=== PATIENT | female | born 1960 | race Caucasian/White ===

== ENCOUNTER 2016-10-30 06:44 | Inpatient (IN) | payer BC ==
--- NOTE | 2016-10-24 13:52 | HP ---
HISTORY AND PHYSICAL: DATE OF SURGERY: 10/30/16 DATE OF OFFICE VISIT: 10/24/16 SURGEON: Elizabeth Coffman MD. PROCEDURE: Left total knee arthroplasty. CHIEF COMPLAINT: Left arm pain. HISTORY OF PRESENT ILLNESS: Ms. Pop is a 56-year-old female with complaints of left knee pain sec ondary to advanced osteoarthritis. She has failed conservative management and has elected to procee d with a left total knee arthroplasty, which is scheduled for 10/30/[address] Coffman. PAST MEDICAL HISTORY: 1. Hypothyroidism. 2. Sleep apnea. 3. Lichen sclerosus. PAST SURGICAL HISTORY: 1. x3. 2. Tonsillectomy. 3. Ganglion cyst excision from the right wrist x2. 4. Bilateral knee arthroscopies. CURRENT MEDICATIONS: 1. Percocet 5/325. 2. Ibuprofen 800 mg. 3. Synthroid 137 mcg. 4. Relpax. 5. EpiPen. 6. Excedrin. 7. Glucosamine. 8. Clobetasol. 9. Estrace. 10. Vitamin B12. 11. Vitamin D. 12. Multivitamin. ALLERGIES: To [facility] drugs and [facility]. FAMILY HISTORY: Aortic aneurysm, heart disease, giant-cell arteritis, and hypertension. SOCIAL HISTORY: She is a 56-year-old female. She is a physical therapist. She does not smoke or u se drugs. She uses occasional alcohol. REVIEW OF SYSTEMS: A complete 14-point review of systems was reviewed with the patient. It is posi tive for hypothyroidism. Negative for anesthesia problems, history of a DVT, bleeding disorder, hep atitis C, or HIV. PHYSICAL EXAMINATION GENERAL: She is well developed, well nourished, in no acute distress. VITAL SIGNS: She stands 5 feet 7 inches tall, weighs 195 pounds, her blood pressure is 121/84, her heart rate 73. HEENT: Normocephalic, atraumatic. NECK: Supple. No palpable lymph nodes. Trachea is midline. CARDIO: Regular rate and rhythm. Strong S1, S2. No murmurs, gallops, or rubs. PULMONARY: The lungs are clear to auscultation bilaterally. No wheezes, rhonchi, or rales. ABDOMEN: Soft, nontender, nondistended. MUSCULOSKELETAL: Left lower extremity, the skin is intact. There is a moderate joint effusion. Te nderness over the medial and lateral joint line. Full range of motion. Her lower extremity muscle group strengths are intact at 5/5. She has 2+ dorsalis pedis pulses, intact sensation. She walks with a slightly antalgic-type gait favoring her left leg. NEUROLOGIC: She is alert and oriented x3. Cranial nerves II through XII are intact. ASSESSMENT AND PLAN: Ms. Pop is a 56-year-old female with complaints of left knee pain secondary to advanced osteoarthritis. She has failed conservative management and has elected to proceed with a left total knee arthroplasty, which is scheduled for 10/30/[address] Coffman discusse d the risks and benefits of the surgery at today's visit and all of her questions were answered. Co umadin, Colace, and Percocet were sent to her pharmacy for postoperative pain control and DVT prophy laxis. She will see Dr. Coffman back 2 weeks after the surgery. KRYSTLE SHANNON [id number]/[facility] #: [id number]
--- NOTE | 2016-10-28 21:23 | HP ---
HISTORY AND PHYSICAL: ADDENDUM: The chief complaint is left knee pain instead of left arm pain and she is scheduled for a left total knee arthroplasty on 10/30/[address] Coffman. KRYSTLE SHANNON [id number]/[facility] #: [id number]
[~2016-10-30 06:44] MED LIST: Buffered Lidocaine 1% SYR 3ML* 3 ML/SYR SYRINGE INTRADERM ONE; Dexamethasone IV* 4 MG/ML 1 ML (4 MG) IV SLOW PU ONE; Dexamethasone IV* 4 MG/ML 1 ML (4 MG) ONE; Famotidine IV* 10 MG/ML 2 ML (20 mg) IV ONE; Famotidine IV* 10 MG/ML 2 ML (20 mg) ONE; ceFAZolin 2 GM PREMIX(*) 2 GM/50 ML BAG IVPB ONE
[2016-10-30] MEDS ORDERED: diPHENhydraMINE IV* 50 MG/ML 1 ml VIAL (BENADRYL) IV PRN ×2 (09:00→10:46)
[2016-10-30] MEDS ORDERED: fentaNYL* 50 MCG/ML 2 ML VIAL (100 MCG VIAL) IV PRN (09:00)
[2016-10-30] MEDS ORDERED: oxyCODONE/Acetamin 5/325 MG* TAB PO PRN ×2 (09:00→10:46)
[2016-10-30] MEDS ORDERED: Naloxone* 0.4 MG/ML 1 ML VIAL IV PRN (09:00)
[2016-10-30] MEDS ORDERED: Nalbuphine* 20 MG/ML 1 ML VIAL IV PRN (09:00)
[2016-10-30] MEDS ORDERED: Ropivacaine* 300 MG in NS 0.9% 250 ML* 240 ML EPIDURAL SCH (09:00)
[2016-10-30] MEDS ORDERED: Scopolamine 1.5 mg* PATCH TRANSDERM SCH (09:00)
[2016-10-30] MEDS ORDERED: DiMENhydriNATE IV* 50 MG/ML VIAL IV PUSH PRN (09:00)
[2016-10-30] MEDS ORDERED: Ondansetron INJ* 2 MG/ML VIAL IV PRN ×2 (09:00)
[2016-10-30] MEDS ORDERED: Acetaminophen TAB* 325 MG PO PRN (10:46)
[2016-10-30] MEDS ORDERED: Polyethylene Glycol 3350* 17 GM PACKET PO PRN (10:46)
[2016-10-30] MEDS ORDERED: Bisacodyl SUPP* 10 MG SUPP PR PRN (10:46)
[2016-10-30] MEDS ORDERED: Ondansetron TAB* 4 MG PO PRN (10:46)
[2016-10-30] MEDS ORDERED: Magnesium Hydroxide LIQ* 30 ML UDC PO PRN (10:46)
--- NOTE | 2016-10-30 11:29 | RAD ---
INDICATION: Status post total left knee replacement surgery. COMPARISON: Comparison is made with a prior x-ray study of the left knee from October 24, 2016. TECHNIQUE: 2 views of the left knee were obtained. FINDINGS: The patient is status post total left knee replacement surgery. The bones and prostheses are in normal alignment. There is a surgical drain present anterior to the distal femur. IMPRESSION: STATUS POST TOTAL LEFT KNEE REPLACEMENT SURGERY.
[2016-10-30] MEDS ORDERED: Nalbuphine* 20 MG/ML 1 ML VIAL ONE (12:41)
[2016-10-30] MEDS: Nalbuphine* 20 MG/ML 1 ML VIAL IV PRN ×2 (12:43→18:47)
[2016-10-30] MEDS: ceFAZolin 1 GM in Dextrose (*) 1 GM/50 ML BAG IVPB SCH ×2 (15:04→23:11)
[2016-10-30] MEDS ORDERED: SUMAtriptan TAB* 25 MG PO ONE (16:50)
[2016-10-30] MEDS: Warfarin TAB(*) 6 MG PO ONE ×2 (17:01→17:14)
[2016-10-30] MEDS ORDERED: SUMAtriptan TAB* 50 MG PO PRN (18:50)
[2016-10-30] MEDS: Docusate CAP* 100 MG PO SCH (21:00)
[2016-10-30] MEDS: oxyCODONE/Acetamin 5/325 MG* TAB PO PRN (23:16)
[2016-10-31] MEDS: oxyCODONE/Acetamin 5/325 MG* TAB PO PRN ×7 (02:29→21:18)
[2016-10-31] MEDS: Levothyroxine TAB* 137 MCG TAB PO SCH (05:26)
[2016-10-31 06:31] LABS: Hematocrit 30 % (35-47); Hemoglobin 10.1 g/dl (12.0-16.0)
[2016-10-31] MEDS: ceFAZolin 1 GM in Dextrose (*) 1 GM/50 ML BAG IVPB SCH (06:49)
[2016-10-31 06:56] LABS: BUN/Creatinine Ratio 23.8 (8-20); Calcium 8.3 mg/dL (8.6-10.3); EGFR African American 95.4 (>60); EGFR Non-African American 74.2 (>60); Potassium 3.5 mmol/L (3.5-5.0)
[2016-10-31] MEDS: Morphine INJ* 2 MG/ML 1 ML SYRINGE IV PRN ×5 (07:01→19:58)
[2016-10-31] MEDS: Docusate CAP* 100 MG PO SCH ×2 (08:20→19:58)
[2016-10-31] MEDS: Enoxaparin(*) 30 MG/0.3 ML SYR SUBCUT SCH (08:21)
--- NOTE | 2016-10-31 08:32 | PN ---
Progress Note - Progress Note SOAP: Subjective: 56 y/o female s/p L TKA 10/30/[address] Coffman. Overall patient feeling well, no complaints. 1 L fluid given today to increase UO, low BP. VSS, afebrile. Objective: General- Well appearing, NAD. Resting in bed comfortably with family nearby. MSK- Surgical dressing intact, no drainage noted, sensation intact L LE, mild swelling noted, PT pulses 2+ b/l, + DF/ PF Vital Signs Temp 98.5 F 10/31/16 07:43 Pulse 87 10/31/16 07:43 Resp 16 10/31/16 08:20 BP 108/66 10/31/16 07:43 Pulse Ox 94 10/31/16 07:43 Intake & Output 10/30/16 10/31/16 10/31/16 18:59 06:59 18:59 Intake Total 1400 1599 Output Total 1350 625 Balance 50 974 Weight 198 lb Intake: IV Fluids 1400 989 LR 989 lr 1400 Oral 610 Output: [place] 1150 625 Estimated Blood Loss 200 Other: # Bowel Movements 0 Laboratory Results - last 24 hr 10/31/16 10/31/16 10/31/16 06:06 06:06 06:07 Hgb 10.1 L Hct 30 L INR (Anticoag Therapy) 0.98 Sodium 136 Potassium 3.5 Chloride 104 Carbon Dioxide 28 Anion Gap 4 BUN 19 Creatinine 0.80 Est GFR ( Amer) 95.4 Est GFR (Non-Af Amer) 74.2 BUN/Creatinine Ratio 23.8 H Glucose 106 H Calcium 8.3 L Assessment: 56 y/o female s/p R TKA 10/30/[address] Coffman Plan: - Lovenox while inpatient, ASA 325 BID at D/C - PT/ OT - D/C mays - COntinue pain regimen Active Medications Generic Name Dose Route Start Last Admin Trade Name Freq PRN Reason Stop Dose Admin Acetaminophen 650 mg 10/30/16 10:46 Tylenol Tab* PO Q4H PRN PAIN OR TEMPERATURE Bisacodyl 10 mg 10/30/16 10:46 Dulcolax Supp* [place] DAILY PRN constipation Diphenhydramine HCl 12.5 mg 10/30/16 10:46 Benadryl Iv* IV Q6H PRN PRURITIS Docusate Sodium 100 mg 10/30/16 21:00 10/31/16 08:20 Colace Cap* PO 100 mg BID MARÍA Administration Enoxaparin Sodium 30 mg 10/31/16 09:00 10/31/16 08:21 Lovenox(*) SUBCUT 30 mg Q24H MARÍA Administration Lactated Ringer's 1,000 mls @ 175 mls/hr 10/31/16 08:00 10/31/16 08:18 Lactated Ringers 1000 Ml Bag* IV 175 mls/hr PER RATE MARÍA Administration Lactulose 30 ml 10/30/16 10:46 Lactulose* PO Q6H PRN constipation Levothyroxine Sodium 137 mcg 10/31/16 06:00 10/31/16 05:26 Synthroid Tab* PO 137 mcg DAILY@0600 [facility] Administration Magnesium Hydroxide 30 ml 10/30/16 10:46 Milk Of Magnesia Liq* PO Q6H PRN constipation Morphine Sulfate 2 mg 10/30/16 10:46 10/31/16 07:01 Morphine Inj (Syringe)* IV 2 mg Q2H PRN Administration PAIN Ondansetron HCl 4 mg 10/30/16 10:46 Zofran Tab* PO Q6H PRN NAUSEA Oxycodone HCl 10 mg 10/30/16 10:46 Roxycodone Tab* PO Q4H PRN SEVERE PAIN Oxycodone/Acetaminophen 1 tab 10/30/16 10:46 Percocet 5/325 Tab* PO Q3H PRN PAIN - MODERATE Oxycodone/Acetaminophen 2 tab 10/30/16 10:46 10/31/16 08:20 Percocet 5/325 Tab* PO 2 tab Q3H PRN Administration PAIN - MODERATE Pharmacy Profile Note 1 note 11/02/16 09:04 Scopolomine Patch Remove* PATCH OFF 11/02/16 09:05 .AFTER 72 HOURS ONE Polyethylene Glycol/Electrolytes 17 gm 10/30/16 10:46 Miralax* PO DAILY PRN Constipation
--- NOTE | 2016-10-31 09:09 | OP ---
DATE OF OPERATION: 10/30/16 - ROOM #343 DATE OF : 60 SURGEON: Elizabeth Coffman MD. STORE SALES MANAGER: KRYSTLE Cosby. Ms. Magdaleno did help throughout all portions of the procedure and was necessary in order to perform this case. ANESTHESIOLOGIST: Dr. Bryce Liu. ANESTHESIA: Spinal. PRE-OP DIAGNOSIS: Severe end-stage degenerative osteoarthritis of the left knee joint. POST-OP DIAGNOSIS: Severe end-stage degenerative osteoarthritis of the left knee joint. OPERATIVE PROCEDURE: Left total knee arthroplasty. TOURNIQUET TIME: 50 minutes. COMPLICATIONS: None. ESTIMATED BLOOD LOSS: 200 cc. DRAIN: One medium Hemovac drain. SPECIMEN: Bone and cartilage from the left knee joint sent to pathology. HARDWARE USED: [employer] cemented total knee hardware with 2 packages of Simplex bone cement. For the femur, a size 4, left posterior stabilized Legion Oxinium femoral component. For the tibia, a size 3 left tibial base plate. For the patella, a 32-mm 7.5 thickness, 3-peg all-poly patella, and for the insert a 9 mm posterior stabilized articular insert, size 3-4. BRIEF HISTORY/INDICATION: Ms. Pop is a 56-year-old female with years of increasingly severe left knee pain. She failed conservative treatment with antiinflammatories, pain medications, intraarticular injections and knee arthroscopy. She elected to undergo left total knee arthroplasty due to continued pain and decreased quality of life. Radiographs confirmed bone-on- bone arthritis in the medial compartment. Informed consent was obtained from the patient. She understood the risks of the procedure included, but were not limited to bleeding, infection, damage to nearby structures, continued pain, need for further surgery, intraoperative fracture, nerve palsy, hardware failure or loosening, knee stiffness, loss of motion, stroke, heart attack, blood clot, and . She wished to proceed. INTRAOPERATIVE FINDINGS: Intraoperatively, the patient was noted to have severe end-stage arthritis of the medial and patellar femoral compartments with complete loss of cartilage and subchondral sclerosis. DESCRIPTION OF PROCEDURE: Ms. Pop was identified in the preanesthesia unit. Her left lower extremity was marked as the correct operative site. Informed consent was signed and placed in the chart. The patient was taken to the operating room and placed under spinal anesthesia without difficulty. A Zavala catheter was placed. Thigh-high tourniquet was placed on the left thigh. Left lower extremity was prepped and draped in the usual sterile fashion. Preop time-out was made to correctly identify the patient's side and site. Appropriate perioperative antibiotics were given within 1 hour of the procedure. Tourniquet was inflated and total tourniquet time for this procedure was 50 minutes. A 12 cm midline incision was made with a 10-blade and carried down to the extensor mechanism. A new 10 blade was used to make a standard medial parapatellar arthrotomy. The patella was subluxed laterally. It was immediately noted that the entire patella, medial and lateral facet as well as medial compartment had lost cartilage and subchondral sclerosis with osteophyte formation. Electrocautery was used to subperiosteally elevate soft tissue off the superomedial tibia to the mid sagittal plane. The osteophytes were carefully removed. The knee was flexed up. Anterior horn of the lateral meniscus and ACL was sharply released. A drill was used to enter the distal femur. Intramedullary distal femoral cutting guide was pinned on the distal femur. Oscillating saw was used to make the distal femoral cut. An external rotation guide was pinned on the distal femur. The distal femur was sized to a size 4. Size 4 multi-cutting jig was pinned on the distal femur. Oscillating saw to used to make the appropriate 4 chamfer cuts. All bony fragments were carefully removed. The PCL was completely released. The tibia was subluxed anteriorly. Extramedullary tibial cutting guide was pinned on the proximal tibia. The oscillating saw was used to make a proximal tibial cut perpendicular to the mechanical axis of the tibia. The tibial bone was carefully removed. The knee was brought out to full extension. The spacer block had excellent medial and lateral ligamentous balancing. The knee was in full extension. Flexion and extension gaps were well balanced. The knee was flexed up. Lamina hair spinning machine operator was placed both medially and laterally. Any remaining meniscus was carefully removed using electrocautery. Any posterior osteophytes were removed using a curved osteotome and curette. A size 4 left femoral trail was impacted onto the distal femur. The box for the posterior stabilized implant was prepared using a reamer and box cut osteotome. A size 3 tibial trial with a 9 mm insert trial was placed and the knee was taken through a range of motion. There was good medial and lateral ligamentous stability. The knee had full extension to 130 degrees of flexion with good patellofemoral tracking. The patella was everted. The patellar bone was intensely sclerotic. Oscillating saw was used to remove 7 mm of patellar bone and cartilage. The patella was sized to a size 32. Three peg holes were drilled through the size 32 guide. A 32 patellar trial with 7.5 thickness was chosen and placed on the patella. The knee was taken through a range of motion and noted to have good patellofemoral tracking. All trials were carefully removed at this point. The tibia was subluxed anteriorly and sized to a size 3. Proximal tibia was prepared using a size 3 keel punch. All bony cut surfaces were copiously irrigated and dried. Final implants were cemented into place starting with the tibia followed by the femur and last the patella. A 9 mm insert trial was placed while the knee was brought out to full extension. Tourniquet was turned down at 50 minutes. The cement was allowed to fully cure and the knee was copiously irrigated with sterile saline. Once the cement had fully cured, the insert trial was removed. The entire joint capsule and around the edges of the hardware was checked for any excess cement, which was carefully removed. Electrocautery was used to obtain meticulous hemostasis. Final insert chosen was a 9 mm size 3-4 posterior stabilized articular insert. This was locked into position on the tibial tray without difficulty. Stability of the insert was checked and rechecked and noted to be stable. The knee was once again copiously irrigated with sterile saline. The extensor mechanism was closed over a medium Hemovac drain using interrupted #1 Vicryl. The rest of the incision was closed in a layered fashion using 0 and 2-0 Vicryl. Skin was closed using running 3-0 nylon suture. Sterile Xeroform, 4x4s , and Webril were used to cover the incision. Bret wrap and cold packs were placed over this. The patient's anesthesia was reversed without difficulty. She was taken to the PACU in stable condition. Intended weightbearing will be weightbearing as tolerated. Intended DVT prophylaxis will be twice daily aspirin with a Lovenox bridge. [id number]/[facility] #: [id number] LEDY
[2016-10-31] MEDS ORDERED: SUMAtriptan TAB* 50 MG PO PRN (10:24)
[2016-10-31] MEDS ORDERED: PTO: ELETRIPTAN 40 MG (NF) PO PRN (21:00)
[2016-10-31] MEDS: ELETRIPTAN HYDROBROMIDE 40 MG PO SCH (21:40)
[2016-11-01] MEDS: oxyCODONE TAB* 5 MG TAB PO PRN ×4 (00:20→15:35)
[2016-11-01] MEDS: Morphine INJ* 2 MG/ML 1 ML SYRINGE IV PRN (02:00)
[2016-11-01] MEDS: oxyCODONE/Acetamin 5/325 MG* TAB PO PRN ×5 (03:23→23:04)
[2016-11-01 05:49] LABS: Hematocrit 30 % (35-47); Hemoglobin 10.4 g/dl (12.0-16.0)
[2016-11-01] MEDS: Levothyroxine TAB* 137 MCG TAB PO SCH (06:21)
--- NOTE | 2016-11-01 07:38 | PN ---
Progress Note - Progress Note SOAP: Subjective: pt resting comfortably in bed with moderate left knee pain. Objective: Vital Signs Temp Pulse Resp BP Pulse Ox 98.4 F 100 16 147/79 94 11/01/16 03:29 11/01/16 06:56 11/01/16 06:21 11/01/16 03:29 11/01/16 03:29 Laboratory Last Values Hgb 10.4 g/dl (12.0-16.0) L 11/01/16 05:32 Hct 30 % (35-47) L 11/01/16 05:32 INR (Anticoag Therapy) 1.07 (0.89-1.11) 11/01/16 05:32 Sodium 136 mmol/L (133-145) 10/31/16 06:06 Potassium 3.5 mmol/L (3.5-5.0) 10/31/16 06:06 Chloride 104 mmol/L (101-111) 10/31/16 06:06 Carbon Dioxide 28 mmol/L (22-32) 10/31/16 06:06 Anion Gap 4 mmol/L (2-11) 10/31/16 06:06 BUN 19 mg/dL (6-24) 10/31/16 06:06 Creatinine 0.80 mg/dL (0.51-0.95) 10/31/16 06:06 Est GFR ( Amer) 95.4 (>60) 10/31/16 06:06 Est GFR (Non-Af Amer) 74.2 (>60) 10/31/16 06:06 BUN/Creatinine Ratio 23.8 (8-20) H 10/31/16 06:06 Glucose 106 mg/dL (70-100) H 10/31/16 06:06 Calcium 8.3 mg/dL (8.6-10.3) L 10/31/16 06:06 incision: c/d; dressing changed PE: NVI Assessment: s/p left TKA; POD #2 Plan: 1) Continue PT/OT 2) Continue Lovenox/SCD's for DVT prophylaxis 3) OOB with PT this am, if she does well, D/C home this pm 4) ASA 325mg BID once home for DVT prophylaxis; F/U with Dr. Coffman in 2 weeks.
[2016-11-01] MEDS: Docusate CAP* 100 MG PO SCH ×2 (08:30→21:24)
[2016-11-01] MEDS: ELETRIPTAN HYDROBROMIDE 40 MG PO SCH (08:30)
[2016-11-01] MEDS: Enoxaparin(*) 30 MG/0.3 ML SYR SUBCUT SCH (08:31)
--- NOTE | 2016-11-01 10:19 | RAD ---
INDICATION: Postoperative cough. COMPARISON: Comparison is made with prior study from October 24, 2016. TECHNIQUE: A portable view of the chest was obtained. FINDINGS: Cardiac and mediastinal contours appear to be within normal limits. The lungs are underinflated and clear. No pleural effusion is seen. IMPRESSION: NO EVIDENCE FOR ACUTE FINDING.
[2016-11-01] MEDS ORDERED: NS 0.9% 500 ML BAG* 500 ML IV SCH (11:00)
[2016-11-01 11:55] LABS: Hematocrit 30 % (35-47); Hemoglobin 10.3 g/dl (12.0-16.0); Mean Corpuscular HGB Conc 34 g/dl (31-36); Mean Corpuscular Hemoglobin 31 pg (27-31); Mean Corpuscular Volume 90 fL (80-97); Mean Platelet Volume 7 um3 (7.4-10.4); Red Blood Count 3.38 10^6/ul (4.0-5.4); Red Cell Distribution Width 14 % (10.5-15); White Blood Count 9.9 10^3/ul (3.5-10.8)
[2016-11-01 12:13] LABS: Urine Bilirubin Negative (Negative); Urine Glucose Negative (Negative); Urine Nitrite Negative (Negative)
[2016-11-01 12:39] LABS: BUN/Creatinine Ratio 9.6 (8-20); Calcium 8.4 mg/dL (8.6-10.3); EGFR African American 106.1 (>60); EGFR Non-African American 82.5 (>60); Potassium 3.5 mmol/L (3.5-5.0)
[2016-11-01 12:50] LABS: TSH (Thyroid Stimulating Horm) 2.16 mcIU/mL (0.34-5.60)
[2016-11-01 12:57] LABS: Free T4 1.34 ng/dL (0.61-1.12)
[2016-11-01] MEDS ORDERED: Iohexol 350* (CONTRAST) 500 ML MDV IV ONE (13:33)
--- NOTE | 2016-11-01 14:28 | RAD ---
INDICATION: Postop drop in oxygen saturation, new tachycardia. COMPARISON: Correlation is made with a prior chest x-ray study from February 01, 2017. TECHNIQUE: A CT angiogram of the chest was performed with intravenous following intravenous injection of 76 ml of Omnipaque 350 nonionic contrast. Contiguous axial sections were obtained from the lung apices through the lung bases. Images were reconstructed in the coronal and sagittal planes. FINDINGS: There is relatively homogeneous opacification of the pulmonary arteries. No intraluminal filling defect or pulmonary embolism is seen. The heart is within normal limits in size. No pericardial effusion is present. The thoracic aorta is normal in caliber and demonstrates homogeneous contrast opacification. No significant enlarged mediastinal or hilar lymph nodes are seen. There is thickening of the wall of the distal esophagus. There is a small left pleural effusion and mild dependent bilateral lower lobe infiltrates most consistent with atelectasis. No significant focal osseous abnormality is seen. IMPRESSION: 1. NO EVIDENCE FOR PULMONARY EMBOLISM. 2. SMALL LEFT PLEURAL EFFUSION AND SMALL DEPENDENT BILATERAL LOWER LOBE INFILTRATES SUGGESTIVE OF ATELECTASIS LESS LIKELY PNEUMONIA. 3. MILD NONSPECIFIC THICKENING OF THE WALL OF THE DISTAL ESOPHAGUS SUGGESTING THE POSSIBILITY OF ESOPHAGITIS. RECOMMEND CLINICAL CORRELATION.
[2016-11-01] MEDS ORDERED: Potassium Chlor TAB* 20 MEQ TAB.ER PO ONE (14:35)
--- NOTE | 2016-11-01 15:04 | PN ---
Hospitalist Progress Note Reviewed labs and scan results. Patient's HR improved to low 90s following 500 cc bolus. Discussed results with patient. She still denies CP, SOB, n/v or acute complaint. CTA negative for PE. CXR and CTA with concern for atelectasis and question of small pleural effusion. Patient encouraged to be aggressive with pulmonary toileting, which she is in agreement with. Continue pain management and encouraging PO fluids. Continue to monitor overnight and likely d /c tomorrow.
--- NOTE | 2016-11-01 16:19 | CONS ---
MEDICINE CONSULTATION: DATE OF CONSULT: 11/01/16 PROVIDER: Ema Evans NP PRIMARY CARE PHYSICIAN: Brennan Rob MD. REQUESTING PHYSICIAN: Elizabeth Coffman MD CONSULTING PHYSICIAN: Jared Culver MD (as dictated by Ema Evans NP). REASON FOR CONSULTATION: Postoperative tachycardia. HISTORY OF PRESENT ILLNESS: Ms. Pop is a 56-year-old female with a past medical history significant for hypothyroidism and migraines, who presented to the hospital on 10/30/16 for an elective left total knee replacement. The patient has failed conservative outpatient management, has elected to proceed with the left total knee arthroplasty, which she did complete and tolerated relatively well. Postoperatively, the patient was noted to have some hypotension ; however, her H and H has remained stable. Prior to admission, the patient states that she was feeling well at home and denies any recent illnesses, fever, chills, chest pain, shortness of breath, abdominal pain, nausea, or vomiting. The patient denies any palpitations, dizziness, or syncopal events. She states she has been in relatively good health. The patient has had no major concerns during her stay again having stable H and H and electrolytes appear to be within normal limits. Notably, the patient's heart rate has been well controlled in the 60s and 80s until this morning when they were in the 100s. The patient has been gradually trending up from yesterday afternoon into the 90s and now in the 100s to 110s. The patient denies any current chest pain, palpitations, or shortness of breath. Also of note, when trending her O2 saturation, the patient was previously trending in the 98% to 100%. It is now 93% to 94%. PAST MEDICAL HISTORY: Significant for: 1. Hypothyroidism. 2. Osteoarthritis. 3. History of migraines. 4. Lichen sclerosus. PAST SURGICAL HISTORY: Includes: 1. x3. 2. Tonsillectomy. 3. Ganglion cyst excision in the right wrist x2. 4. Bilateral knee arthroscopies. HOME MEDICATIONS: 1. Oxycodone 5 mg q.4 hours p.r.n. 2. Vitamin B12 one tablet q.a.m. 3. Multivitamin 1 capsule q.p.m. 4. Probiotic 1 capsule q.a.m. 5. Clobetasol 0.05% ointment 1 application topical b.i.d. p.r.n. 6. Cholecalciferol 2000 units q.a.m. 7. Excedrin extra strength 1 tab p.r.n. 8. [place]-3 fatty acids 1000 mg daily. 9. Levothyroxine 137 mcg q.a.m. 10. Ibuprofen 600 mg q.6 hours p.r.n. 11. Glucosamine chondroitin 1 capsule q.a.m. 12. Estradiol vaginal cream 1 application 2 to 3 times a week. 13. Epinephrine 0.3 mg injection cartridge as needed for allergic reaction. 14. Relpax 40 mg p.r.n. migraines. 15. Aspirin 325 mg b.i.d. ALLERGIES: Include GLUTEN, SULFA DRUGS, and BEE VENOM. FAMILY HISTORY: The patient reports hypertension, hypercholesterolemia, arthritis, and diabetes in her father and hypertension, hypercholesterolemia, polymyalgia, temporal arteritis, hypothyroidism, osteoporosis, and B12 deficiency in her mother. She has also a brother with history of goiter, hypertension, and hypercholesterolemia. SOCIAL HISTORY: She reports occasional alcohol use. She denies any history of tobacco or illicit drug use. 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 She is , lives with her . Her , Mr. Juan David Pop, is her surrogate decision maker and healthcare proxy in the event of emergency. REVIEW OF SYSTEMS: A 14-point review of systems was completed. All pertinent positives and negatives are included in the HPI. All those not mentioned are negative. PHYSICAL EXAM: General: Ms. Pop is a 56-year-old female who is lying in the hospital bed in no acute distress. Most recent vital signs: Temperature 99.4, heart rate 104, respiratory rate 18, blood pressure 143/81, and O2 saturation is 94% on room air. HEENT: Head is atraumatic, normocephalic. Face is symmetrical. Pupils are equal, round, and reactive to light. Sclerae are anicteric. External ears and nose are normal. Oral mucosa appears moist. Neck : Supple. No lymphadenopathy appreciated. Cardiac: S1 and S2 heart sounds. Regular rate and rhythm. Apical pulse is 104. There is mild left lower extremity edema. Distal pulses are 2+ bilaterally. Respiratory: Lungs are clear to auscultation. No accessory muscle use is noted. No adventitious lung sounds. Abdomen: Soft, nontender, and nondistended. Bowel sounds present times all 4 quadrants. No CVA tenderness. Extremities: The patient has clean , dry, and intact dressing to the left knee and has good range of motion to upper extremities and right lower extremity, left lower extremity is mildly restricted secondary to dressing and recent surgery. There is mild edema in the postoperative left lower extremity, but no edema noted in the right lower extremity. Skin: Limited assessment but appears grossly intact. Neuro: Cranial nerves II through XII are grossly intact. The patient moves all extremities. No focal deficits noted. She is alert and oriented x3. DIAGNOSTIC STUDIES/LAB DATA: H and H this morning is 10.4 and 30. INR 1.07. EKG done this morning shows sinus tachycardia. No ischemic changes noted. There are no prior EKGs for comparison. ASSESSMENT AND PLAN: Ms. Pop is a 56-year-old female who is postop day 2 of the left total knee replacement, who has developed postoperative tachycardia of unknown origin. RECOMMENDATIONS: 1. Postoperative tachycardia. The patient does not appear to be in any acute distress. It appears that she did have some issues previously with hypovolemia following surgery, although this seems to have improved; however, it may be beneficial to give the patient small bolus of fluid to see if this improves the tachycardia. The patient's chest x-ray was clear for any acute infiltrates and her lungs do sound clear. I am unsure of the patient's O2 saturation, which has been slowly declining over the past 2 days, although it is still within normal limits. She is relatively low risk for PE, DVT as she has been anticoagulated here in the hospital; however, it may be prudent given her tachycardia and declining O2 saturation to check a CTA to rule out PE. Additionally, I will check an UA. The patient is afebrile. I also check her BMP to check for any electrolyte abnormalities including potassium with magnesium as well as TSH. The patient's EKG shows sinus tachycardia. She is not having any palpitations and does not demonstrate any arrhythmias or ectopy at this time. 2. Left total knee replacement. The patient is postop day 2. Management per Surgery. Continue PT/OT. 3. History of hypothyroidism. The patient should continue her current dose of levothyroxine. 4. History of migraines, appeared stable. The patient is ordered p.r.n. Imitrex as needed. 5. DVT prophylaxis, per Ortho. The patient has not been on warfarin, but has been anticoagulated with Lovenox. 6. Code status. She is a full code. TIME SPENT: Time spent on this consultation was approximately 50 minutes, more than half that time was spent [id number] with the patient and family obtaining history and physical, performing physical examination, and reviewing the plan of care. Plan of care was also reviewed with my attending, Dr. Culver, who is in agreement. Thank you for this consultation, we will continue to follow up on these results. EMA EVANS NP CC: Brennan Rob MD.* [id number]/[facility] #: [id number] MTDD
[2016-11-01] MEDS ORDERED: NS 0.9% 500 ML BAG* 500 ML IV ONE (18:18)
[2016-11-02] MEDS: oxyCODONE/Acetamin 5/325 MG* TAB PO PRN ×5 (03:00→20:00)
[2016-11-02 06:29] LABS: Hematocrit 32 % (35-47); Hemoglobin 10.4 g/dl (12.0-16.0)
[2016-11-02] MEDS: Levothyroxine TAB* 137 MCG TAB PO SCH (06:47)
[2016-11-02 06:48] LABS: BUN/Creatinine Ratio 7.5 (8-20); Calcium 8.5 mg/dL (8.6-10.3); EGFR African American 95.4 (>60); EGFR Non-African American 74.2 (>60); Potassium 3.5 mmol/L (3.5-5.0)
--- NOTE | 2016-11-02 07:11 | PN ---
Progress Note - Progress Note SOAP: Subjective: pt resting comfortably with no complaints, denies SOB/chest pain Objective: Vital Signs Temp Pulse Resp BP Pulse Ox 99.5 F 102 18 134/84 96 11/02/16 03:04 11/02/16 03:04 11/02/16 06:47 11/02/16 03:04 11/02/16 03:04 Laboratory Last Values WBC 9.9 10^3/ul (3.5-10.8) 11/01/16 11:38 RBC 3.38 10^6/ul (4.0-5.4) L 11/01/16 11:38 Hgb 10.4 g/dl (12.0-16.0) L 11/02/16 06:15 Hct 32 % (35-47) L 11/02/16 06:15 MCV 90 fL (80-97) 11/01/16 11:38 MCH 31 pg (27-31) 11/01/16 11:38 MCHC 34 g/dl (31-36) 11/01/16 11:38 RDW 14 % (10.5-15) 11/01/16 11:38 Plt Count 216 10^3/ul (150-450) 11/01/16 11:38 MPV 7 um3 (7.4-10.4) L 11/01/16 11:38 INR (Anticoag Therapy) 0.98 (0.89-1.11) 11/02/16 06:15 D-Dimer, Quantitative 541 ng/mL (Less Than 230) H 11/01/16 11:38 Sodium 135 mmol/L (133-145) 11/02/16 06:15 Potassium 3.5 mmol/L (3.5-5.0) 11/02/16 06:15 Chloride 102 mmol/L (101-111) 11/02/16 06:15 Carbon Dioxide 28 mmol/L (22-32) 11/02/16 06:15 Anion Gap 5 mmol/L (2-11) 11/02/16 06:15 BUN 6 mg/dL (6-24) 11/02/16 06:15 Creatinine 0.80 mg/dL (0.51-0.95) 11/02/16 06:15 Est GFR ( Amer) 95.4 (>60) 11/02/16 06:15 Est GFR (Non-Af Amer) 74.2 (>60) 11/02/16 06:15 BUN/Creatinine Ratio 7.5 (8-20) L 11/02/16 06:15 Glucose 107 mg/dL (70-100) H 11/02/16 06:15 Calcium 8.5 mg/dL (8.6-10.3) L 11/02/16 06:15 Magnesium 2.0 mg/dL (1.9-2.7) 11/01/16 11:38 TSH 2.16 mcIU/mL (0.34-5.60) 11/01/16 11:38 Free T4 1.34 ng/dL (0.61-1.12) H 11/01/16 11:38 Urine Color Straw 11/01/16 12:00 Urine Appearance Clear 11/01/16 12:00 Urine pH 7.0 (5-9) 11/01/16 12:00 Ur Specific [place] 1.001 (1.010-1.030) L 11/01/16 12:00 Urine Protein Negative (Negative) 11/01/16 12:00 Urine Ketones Trace (Negative) H 11/01/16 12:00 Urine Blood Negative (Negative) 11/01/16 12:00 Urine Nitrate Negative (Negative) 11/01/16 12:00 Urine Bilirubin Negative (Negative) 11/01/16 12:00 Urine Urobilinogen Negative (Negative) 11/01/16 12:00 Ur Leukocyte Esterase Negative (Negative) 11/01/16 12:00 Urine Glucose Negative (Negative) 11/01/16 12:00 incision: c/d PE: NVI Assessment: s/p left TKA Plan: 1) ASA/Lovenox for DVT prophylaxis 2) home today if OK with Hospitalist, F/U in 2 weeks 3) PT/OT-WBAT
[2016-11-02] MEDS: Docusate CAP* 100 MG PO SCH ×2 (08:29→20:00)
[2016-11-02] MEDS: Enoxaparin(*) 30 MG/0.3 ML SYR SUBCUT SCH (08:30)
[2016-11-02] MEDS ORDERED: Scopolomine PATCH Remove* 1 NOTE MISC PATCH OFF ONE (09:04)
[2016-11-02 09:08] LABS: Mean Corpuscular HGB Conc 32 g/dl (31-36); Mean Corpuscular Hemoglobin 29 pg (27-31); Mean Corpuscular Volume 91 fL (80-97); Mean Platelet Volume 8 um3 (7.4-10.4); Red Blood Count 3.51 10^6/ul (4.0-5.4); Red Cell Distribution Width 14 % (10.5-15); White Blood Count 10.3 10^3/ul (3.5-10.8)
--- NOTE | 2016-11-02 09:28 | PN ---
Subjective Date of Service: 11/02/16 Interval History: This is a 56 yo female who is s/p L TKA. Hospitalist group has been consulted for post-op tachycardia. CTA neg for PE but suggestive of bilateral atelectasis. She was febrile overnight with Tmax 100.6. She has been encouraged to use an incentive spirometer which is inducing a productive cough. No dyspnea. She has known NURY and uses a mouth guard but hasn't tolerated a CPAP. Pain is reportedly under better control this am. HR remains ~100 overnight. Objective Active Medications: Acetaminophen (Tylenol Tab*) 650 mg PO Q4H PRN PRN Reason: PAIN OR TEMPERATURE Bisacodyl (Dulcolax Supp*) 10 mg IN DAILY PRN PRN Reason: constipation Diphenhydramine HCl (Benadryl Iv*) 12.5 mg IV Q6H PRN PRN Reason: PRURITIS Docusate Sodium (Colace Cap*) 100 mg PO BID [facility] Last Admin: 11/02/16 08:29 Dose: Not Given Eletriptan (Relpax (Nf)) 40 mg PO Q2H PRN PRN Reason: MIGRAINE HEADACHE Enoxaparin Sodium (Lovenox(*)) 30 mg SUBCUT Q24H [facility] Last Admin: 11/02/16 08:30 Dose: 30 mg Lactated Ringer's (Lactated Ringers 1000 Ml Bag*) 1,000 mls @ 175 mls/hr IV PER RATE [facility] Last Admin: 10/31/16 08:18 Dose: 175 mls/hr Sodium Chloride (Ns 0.9% 500 Ml Bag*) 500 mls @ 1,000 mls/hr IV .BOLUS [facility] Last Admin: 11/01/16 11:12 Dose: 1,000 mls/hr Lactulose (Lactulose*) 30 ml PO Q6H PRN PRN Reason: constipation Levothyroxine Sodium (Synthroid Tab*) 137 mcg PO DAILY@0600 [facility] Last Admin: 11/02/16 06:47 Dose: 137 mcg Magnesium Hydroxide (Milk Of Magnesia Liq*) 30 ml PO Q6H PRN PRN Reason: constipation Last Admin: 11/01/16 08:30 Dose: 30 ml Morphine Sulfate (Morphine Inj (Syringe)*) 2 mg IV Q2H PRN PRN Reason: PAIN Last Admin: 11/01/16 02:00 Dose: 2 mg Ondansetron HCl (Zofran Tab*) 4 mg PO Q6H PRN PRN Reason: NAUSEA Oxycodone HCl (Roxycodone Tab*) 10 mg PO Q4H PRN PRN Reason: SEVERE PAIN Last Admin: 11/01/16 15:35 Dose: 10 mg Oxycodone/Acetaminophen (Percocet 5/325 Tab*) 1 tab PO Q3H PRN PRN Reason: PAIN - MODERATE Oxycodone/Acetaminophen (Percocet 5/325 Tab*) 2 tab PO Q3H PRN PRN Reason: PAIN - MODERATE Last Admin: 11/02/16 06:47 Dose: 2 tab Polyethylene Glycol/Electrolytes (Miralax*) 17 gm PO DAILY PRN PRN Reason: Constipation Sumatriptan Succinate (Imitrex Tab*) 50 mg PO BID PRN PRN Reason: HEADACHE Last Admin: 10/31/16 11:04 Dose: 50 mg Vital Signs: Temp Pulse Resp BP Pulse Ox 99.7 F 101 18 121/66 94 11/02/16 07:44 11/02/16 07:44 11/02/16 08:29 11/02/16 07:44 11/02/16 08:00 Oxygen Devices in Use Now: None Appearance: Well appearing middle aged female who appears in some pain directly after PT Respiratory: Symmetrical Chest Expansion and Respiratory Effort, Clear to Auscultation Cardiovascular: RRR Abdominal: NL Sounds; No Tenderness; No Distention Lymphatic: No Cervical Adenopathy Extremities: - - trace bilateral edema Neurological: Alert and Oriented x 3 Result Diagrams: 11/02/16 06:15 11/02/16 06:15 Diagnostic Imaging: CXR - NAD CTA chest - No PE, bilateral atelectasis and small effusions EKG - sinus tach Assess/Plan/Problems-Billing Assessment: This is a 56 yo female who is s/p L TKA with a h/o hypothyroidism and migraine syndrome. Hospitalist group has been consulted for concern regarding post-op tachycardia. - Patient Problems (1) Status post total left knee replacement Comment: POD #3 Management per ortho (2) Tachycardia Comment: Sinus tach on EKG Normotensive No evidence of bleeding No PE on CTA Likely due to atlectasis, mild assoc hypoxia Developed fever overnight, could also be due to atelectasis No significant improvement with IS Also has untreated/partially treated NURY which is likely contributing Will check WBCs (3) Postoperative anemia Comment: Hgb stable ~10 g/dl Normotensive No indication for transfusion (4) Hypothyroidism Comment: TSH 2 Cont current dose levothyroxine (5) DVT prophylaxis Comment: Lovenox per ortho (6) Full code status Status and Disposition: Patient remains mildly tachycardic and febrile last night, after dicussion with patient, recommend one additional day of hospital monitoring. Repeat labs in am.
[2016-11-02] MEDS ORDERED: Calcium Carbonate CHEW TAB* 500 MG (TUMS) PO PRN (16:06)
[2016-11-02] MEDS ORDERED: Levofloxacin 750 MG IVPREMIX(* 750 MG/150 ML BAG IVPB SCH (18:30)
--- NOTE | 2016-11-02 18:58 | PN ---
Hospitalist Progress Note Patient developed another fever later in the day with complaints of body aches and chills intermittently. No significant leukocytosis but persistently tachcardic. Will treat empirically for PNA, cover hospital acquired pathogens, start Levaquin. Cont to recommend regular incentive spirometer use.
--- NOTE | 2016-11-02 21:35 | DS ---
DISCHARGE SUMMARY: DATE OF ADMISSION: 10/30/16 DATE OF DISCHARGE: 11/03/16 SURGEON: Dr. Elizabeth Coffman. PRINCIPAL DIAGNOSIS: Severe end-stage osteoarthritis of the left knee. DISCHARGE DIAGNOSIS: Severe end-stage osteoarthritis of the left knee. HISTORY OF PRESENT ILLNESS: Ms. Pop is a 56-year-old female with complaints of severe left knee pain secondary to advanced osteoarthritis. She failed conservative management and elected to proceed with a left total knee arthroplasty. HOSPITAL COURSE: Ms. Pop is a 56-year-old female. She was admitted electively to the hospital on 10/30/16 and underwent a left total knee arthroplasty. She was placed on Lovenox for DVT prophylaxis. On postop day 1, her H and H was 10 and 30. On postop day 2, her H and H was 10 and 30. On postop day 3, her H and H was 10 and 30. On postop day 2, the hospitalist team was consulted for some tachycardia and EKG and chest x-ray were ordered. The chest x-ray showed some mild atelectasis. She denies any shortness of breath or chest pain. On POD 3 she had some mild tachycardia and the decision was made to observe one more hospital day. At that time of discharge POD 4, on , she was afebrile and her vital signs were stable. Her wound was clean and dry and healing well. She was discharged to home and asked to follow up with Dr. Coffman in 2 weeks. DISCHARGE MEDICATIONS: 1. Colace 100 mg 2 to 3 times a day as needed. 2. Aspirin 325 twice a day. 3. Levothyroxine 137 mcg every day. 4. Percocet 5/325 one to two tabs every 4 to 6 hours as needed. 5. Imitrex 50 mg twice a day as needed. 6. Potassium chloride 40 mEq once a day. PHYSICAL EXAMINATION UPON DISCHARGE: She is afebrile. Vital signs were stable. Her wound was clean, dry, and healing well. There are no signs of infection. She was ambulating well with the assistance of a walker. Her lower extremity muscle group strengths were intact at 5/5. She has intact sensation. 2+ dorsalis pedis pulses. DISCHARGE INSTRUCTIONS: She is discharged to home in stable condition. She is asked to take aspirin 325 twice a day for DVT prophylaxis. She was also given a prescription for Percocet 5/325 to take 1 to 2 tabs every 4 to 6 hours as needed for pain. She will began physical therapy at her home next week with aggressive range of motion. She is weightbearing as tolerated and Dr. Coffman would like to see her back in her clinic in 2 weeks. She was asked to call our office sooner if she has any questions or concerns. KRYSTLE SHANNON [id number]/[facility] #: [id number] MTDD
[2016-11-03] MEDS: oxyCODONE/Acetamin 5/325 MG* TAB PO PRN ×3 (00:06→08:02)
[2016-11-03] MEDS: Levothyroxine TAB* 137 MCG TAB PO SCH (05:53)
[2016-11-03 06:12] LABS: Hematocrit 28 % (35-47); Hemoglobin 9.5 g/dl (12.0-16.0); Mean Corpuscular HGB Conc 34 g/dl (31-36); Mean Corpuscular Hemoglobin 30 pg (27-31); Mean Corpuscular Volume 90 fL (80-97); Mean Platelet Volume 7 um3 (7.4-10.4); Red Blood Count 3.15 10^6/ul (4.0-5.4); Red Cell Distribution Width 14 % (10.5-15); White Blood Count 7.7 10^3/ul (3.5-10.8)
[2016-11-03 06:24] LABS: BUN/Creatinine Ratio 11.1 (8-20); Calcium 8.4 mg/dL (8.6-10.3); EGFR African American 107.8 (>60); EGFR Non-African American 83.8 (>60); Potassium 3.5 mmol/L (3.5-5.0)
--- NOTE | 2016-11-03 07:15 | PN ---
Progress Note - Progress Note SOAP: Subjective: Pt. alert, pain controlled, denies sob, cp, palpitations. Reports she feels much improved after the abx dose. Objective: LLE - dressing c/d/i. distally nvi, no signif edema. Vital Signs: Temp Pulse Resp BP Pulse Ox 98.4 F 91 18 132/77 98 11/03/16 04:04 11/03/16 04:04 11/03/16 06:02 11/03/16 04:04 11/03/16 04:04 Laboratory Results - last 24 hr 11/02/16 11/03/16 11/03/16 06:15 05:51 05:51 WBC 10.3 7.7 RBC 3.51 L 3.15 L Hgb 9.5 L Hct 28 L MCV 91 90 MCH 29 30 MCHC 32 34 RDW 14 14 Plt Count 257 233 MPV 8 7 L Neut % (Auto) 74.4 71.4 Lymph % (Auto) 15.6 L 14.9 L [place] % (Auto) 7.5 9.2 H Eos % (Auto) 1.9 3.9 Baso % (Auto) 0.6 0.6 Absolute Neuts (auto) 7.7 5.5 Absolute Lymphs (auto) 1.6 1.1 Absolute Monos (auto) 0.8 0.7 Absolute Eos (auto) 0.2 0.3 Absolute Basos (auto) 0.1 0 Absolute Nucleated RBC 0 0 Nucleated RBC % 0 0.1 INR (Anticoag Therapy) 1.06 Sodium Potassium Chloride Carbon Dioxide Anion Gap BUN Creatinine Est GFR ( Amer) Est GFR (Non-Af Amer) BUN/Creatinine Ratio Glucose Calcium 11/03/16 05:51 WBC RBC Hgb Hct MCV MCH MCHC RDW Plt Count MPV Neut % (Auto) Lymph % (Auto) [place] % (Auto) Eos % (Auto) Baso % (Auto) Absolute Neuts (auto) Absolute Lymphs (auto) Absolute Monos (auto) Absolute Eos (auto) Absolute Basos (auto) Absolute Nucleated RBC Nucleated RBC % INR (Anticoag Therapy) Sodium 136 Potassium 3.5 Chloride 102 Carbon Dioxide 27 Anion Gap 7 BUN 8 Creatinine 0.72 Est GFR ( Amer) 107.8 Est GFR (Non-Af Amer) 83.8 BUN/Creatinine Ratio 11.1 Glucose 110 H Calcium 8.4 L Assessment: 56 yo F pod 4 s/p LTKA Plan: wbat lle - pt/ot 325 ecasa bid for dvt proph d/c to home today po abx per medicine team for d/c- appreciate medicine team consultation
[2016-11-03 07:50] VITALS: BP 125/83
[2016-11-03] MEDS: Docusate CAP* 100 MG PO SCH (08:02)
--- NOTE | 2016-11-03 08:06 | PN ---
Subjective Date of Service: 11/03/16 Interval History: Patient reports improvement overnight. She was afebrile and HR improved. Denies further chills. No cough or dyspnea. No abd pain, n/v. Objective Active Medications: Acetaminophen (Tylenol Tab*) 650 mg PO Q4H PRN PRN Reason: PAIN OR TEMPERATURE Bisacodyl (Dulcolax Supp*) 10 mg MS DAILY PRN PRN Reason: constipation Calcium Carbonate (Tums*) 500 mg PO Q4H PRN PRN Reason: HEARTBURN Last Admin: 11/02/16 16:43 Dose: 500 mg Diphenhydramine HCl (Benadryl Iv*) 12.5 mg IV Q6H PRN PRN Reason: PRURITIS Docusate Sodium (Colace Cap*) 100 mg PO BID [facility] Last Admin: 11/02/16 20:00 Dose: Not Given Eletriptan (Relpax (Nf)) 40 mg PO Q2H PRN PRN Reason: MIGRAINE HEADACHE Enoxaparin Sodium (Lovenox(*)) 30 mg SUBCUT Q24H [facility] Last Admin: 11/02/16 08:30 Dose: 30 mg Lactated Ringer's (Lactated Ringers 1000 Ml Bag*) 1,000 mls @ 175 mls/hr IV PER RATE [facility] Last Admin: 10/31/16 08:18 Dose: 175 mls/hr Sodium Chloride (Ns 0.9% 500 Ml Bag*) 500 mls @ 1,000 mls/hr IV .BOLUS [facility] Last Admin: 11/01/16 11:12 Dose: 1,000 mls/hr Levofloxacin/Dextrose (Levaquin 750 Mg Ivpremix(*)) 750 mg in 150 mls @ 100 mls /hr IVPB Q24H [facility] Last Admin: 11/02/16 18:28 Dose: 100 mls/hr Lactulose (Lactulose*) 30 ml PO Q6H PRN PRN Reason: constipation Levothyroxine Sodium (Synthroid Tab*) 137 mcg PO DAILY@0600 [facility] Last Admin: 11/03/16 05:53 Dose: 137 mcg Magnesium Hydroxide (Milk Of Magnesia Liq*) 30 ml PO Q6H PRN PRN Reason: constipation Last Admin: 11/01/16 08:30 Dose: 30 ml Morphine Sulfate (Morphine Inj (Syringe)*) 2 mg IV Q2H PRN PRN Reason: PAIN Last Admin: 11/01/16 02:00 Dose: 2 mg Ondansetron HCl (Zofran Tab*) 4 mg PO Q6H PRN PRN Reason: NAUSEA Oxycodone HCl (Roxycodone Tab*) 10 mg PO Q4H PRN PRN Reason: SEVERE PAIN Last Admin: 11/01/16 15:35 Dose: 10 mg Oxycodone/Acetaminophen (Percocet 5/325 Tab*) 1 tab PO Q3H PRN PRN Reason: PAIN - MODERATE Oxycodone/Acetaminophen (Percocet 5/325 Tab*) 2 tab PO Q3H PRN PRN Reason: PAIN - MODERATE Last Admin: 11/03/16 04:02 Dose: 2 tab Polyethylene Glycol/Electrolytes (Miralax*) 17 gm PO DAILY PRN PRN Reason: Constipation Sumatriptan Succinate (Imitrex Tab*) 50 mg PO BID PRN PRN Reason: HEADACHE Last Admin: 10/31/16 11:04 Dose: 50 mg Vital Signs: Temp Pulse Resp BP Pulse Ox 98.4 F 84 16 125/83 97 11/03/16 07:29 11/03/16 07:29 11/03/16 07:29 11/03/16 07:29 11/03/16 07:29 Oxygen Devices in Use Now: None Appearance: Well appearing, in NAD Respiratory: Symmetrical Chest Expansion and Respiratory Effort, - - crackles at L lung base, otherwise clear to auscultation in other lung adam Cardiovascular: RRR Skin: No Rash or Ulcers Neurological: Alert and Oriented x 3 Result Diagrams: 11/03/16 05:51 11/03/16 05:51 Diagnostic Imaging: CXR - NAD CTA chest - No PE, bilateral atelectasis and small effusions EKG - sinus tach Assess/Plan/Problems-Billing Assessment: This is a 56 yo female who is s/p L TKA with a h/o hypothyroidism and migraine syndrome. Hospitalist group has been consulted for concern regarding post-op tachycardia. - Patient Problems (1) Status post total left knee replacement Comment: POD #4 Plan for dc home today (2) Postoperative pneumonia Comment: Patient was febrile with hypoxia and crackles in left lung base, now improved after one dose of antibiotics Recommend 7 day course of oral Levaquin to cover for hospital acquired pathogens (3) Tachycardia Comment: Likely secondary to PNA/atelectasis Sinus tach on EKG Normotensive No evidence of bleeding No PE on CTA (4) Postoperative anemia Comment: Hgb stable ~10 g/dl Normotensive No indication for transfusion (5) Hypothyroidism Comment: TSH 2 Cont current dose levothyroxine (6) DVT prophylaxis Comment: Lovenox per ortho (7) Full code status Status and Disposition: Agree with plan for discharge home. Rx sent for 7 day supply of Levaquin to patient's pharmacy of choice. Follow up with PCP if respiratory symptoms become worse again.
[2016-11-03] MEDS: Enoxaparin(*) 30 MG/0.3 ML SYR SUBCUT SCH (08:14)
--- NOTE | 2016-11-04 02:05 | DS ---
DISCHARGE SUMMARY:* ADDENDUM: The patient was evaluated by the medical service for postoperative tachycardia and chest x-ray that revealed some mild atelectasis and slight infiltrates. It was felt that she would empirically be treated for postoperative pneumonia and was placed on levofloxacin 750 mg p.o. daily. The patient was discharged home with the levofloxacin 750 mg p.o. q.24 hours for an additional 7 days. KRYSTLE RODRIGUEZ [id number]/[facility] #: [id number] MTDD
== END 2016-11-03 10:25 | disposition home or self-care (01) | DRG 302 ==
LOC: AA 06:44 → SSU 10:46 → AA 10:46
PROVIDERS: ADMIT Orthopaedic Surgery Adult Reconstructive Orthopaedic Surgery; ATTEND Orthopaedic Surgery Adult Reconstructive Orthopaedic Surgery
PROC: 0SRD0J9 Replacement of Left Knee Joint with Synthetic Substitute, Cemented, Open Approach (ICD-10-PCS; principal; 2016-10-30 08:00)
DX: M17.12 Unilateral primary osteoarthritis, left knee (principal); J18.9 Pneumonia, unspecified organism; I95.9 Hypotension, unspecified; J98.11 Atelectasis; R00.0 Tachycardia, unspecified; Z79.82 Long term (current) use of aspirin; E03.9 Hypothyroidism, unspecified; Z88.2 Allergy status to sulfonamides; Z91.030 Bee allergy status; Z82.49 Family history of ischemic heart disease and other diseases of the circulatory system; G43.909 Migraine, unspecified, not intractable, without status migrainosus; G47.33 Obstructive sleep apnea (adult) (pediatric); E66.3 Overweight; R09.02 Hypoxemia; D64.9 Anemia, unspecified; Z82.61 Family history of arthritis; Z83.3 Family history of diabetes mellitus; Z68.31 Body mass index [BMI] 31.0-31.9, adult
CPT/HCPCS: 36415; 62325; 71010; 71275; 80048; 81003; 83735; 84439; 84443; 85014; 85018; 85025; 85027; 85379; 85610; 88305; 88311; 93005; 94760; A9270-GY; C1776; J0690; J1100; J1200; J1650; J2270; J2300; J2405; J2795; Q9967

== ENCOUNTER 2017-12-24 06:44 | Inpatient (IN) | payer BC ==
--- NOTE | 2017-12-11 13:20 | HP ---
HISTORY AND PHYSICAL: DATE OF ADMISSION/SURGERY: 12/24/17 DATE OF OFFICE VISIT: 12/11/17 SURGEON: Elizabeth Coffman MD * (DICTATED BY KRYSTLE SHANNON) PROCEDURE: Right total knee arthroplasty. CHIEF COMPLAINT: Right knee pain. HISTORY OF PRESENT ILLNESS: Ms. Pop is a 57-year-old female with continued complaints of right knee pain. She has failed conservative management and elected to proceed with a right total knee arthroplasty, which is scheduled for 12/24/17. PAST MEDICAL HISTORY: Hypothyroidism and sleep apnea. PAST SURGICAL HISTORY: Left total knee arthroplasty, x3, right wrist surgery x2, wisdom teeth extraction, and bilateral knee arthroscopies. CURRENT MEDICATIONS: 1. Synthroid 137 mcg daily. 2. EpiPen as needed. 3. Excedrin Extra Strength as needed. 4. Glucosamine. 5. Estrace 1 g intravaginally once weekly. 6. Clobetasol propionate cream as needed. ALLERGIES: To SULFA. FAMILY HISTORY: Diabetes and heart disease. SOCIAL HISTORY: She is a 57-year-old female, she lives with her . She does not smoke or use drugs. She does use alcohol nightly. REVIEW OF SYSTEMS: A complete 14-point review of systems was reviewed with the patient. It is positive for hypothyroidism. She denies a history of DVT, PE, hepatitis, HIV, or anesthesia problems. PHYSICAL EXAMINATION GENERAL: She is well developed, well nourished, in no acute distress. VITAL SIGNS: She stands 5 feet 7 inches tall, weighs 192 pounds. Her blood pressure is 126/80 and heart rate is 84. HEENT: Normocephalic, atraumatic. NECK: Supple. No palpable lymph nodes. PULMONARY: The lungs are clear to auscultation bilaterally. CARDIO: Regular rate and rhythm. Strong S1, S2. ABDOMEN: Soft, nontender, nondistended. NEUROLOGICAL: She is alert and oriented x3. MUSCULOSKELETAL: Right lower extremity: The skin is intact. There are no open wounds or abrasions. Range of motion is 10 to 120 degrees with patellofemoral crepitus. 5/5 lower extremity strength, 2+ dorsalis pedis pulses , and intact sensation. ASSESSMENT AND PLAN: Ms. Pop is a 57-year-old female with continued complaints of right knee pain secondary to end-stage osteoarthritis. She has failed conservative management, elected to proceed with a right total knee arthroplasty, which is scheduled for 12/24/[address] Coffman discussed the risks and benefits of the surgery at today's visit and all of her questions were answered. She will follow up 2 weeks after the surgery with Dr. Coffman. KRYSTLE SHANNON [id number]/[facility] #: [id number] LEDY
[~2017-12-24 06:44] MED LIST changes: +Acetaminophen TAB* 325 MG PO ONE; +Buffered Lidocaine 0.9% SYRIN* 5 ML/SYR SYRINGE INTRADERM ONE; -Buffered Lidocaine 1% SYR 3ML* 3 ML/SYR SYRINGE INTRADERM ONE; -Dexamethasone IV* 4 MG/ML 1 ML (4 MG) IV SLOW PU ONE; -Dexamethasone IV* 4 MG/ML 1 ML (4 MG) ONE; -Famotidine IV* 10 MG/ML 2 ML (20 mg) IV ONE; -Famotidine IV* 10 MG/ML 2 ML (20 mg) ONE; +Gabapentin CAP(*) 300 MG PO ONE; -ceFAZolin 2 GM PREMIX(*) 2 GM/50 ML BAG IVPB ONE; +celeCOXIB CAP* 200 MG PO ONE
--- OUTSIDE RECORDS SUMMARY | 2017-12-24 06:49 | XMS REPORT ---
:1960 External Reference #:[id number] Author Organization [employer] Address [address] [place] [address] Phone [phone] Care Team Providers Name Role Phone Brennan Rob MD Primary Care Physician Unavailable Payers Type Date Identification Numbers Payment Provider Subscriber Commercial Policy Number: [id number] [employer] Juan David Ally Macias PayID: [id number] [address] [address] [place] [address] Medigap Part B Expires: 2013 Policy Number: [facility] Juan David Donn [id number] PayID: [id number] [address] [address] [place] [address] Problems Date Description Provider Status Onset: 07/11/2015 Localized, primary osteoarthritis Elizabeth Coffman M.D. Active Onset: 11/10/2016 Arthroplasty of knee Elizabeth Coffman M.D. 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 procedure Synthroid 07/22 Active Tablets 137mcg 30tab Take One Tablet Shana /2011 s By Mouth Once Cotton, Daily M.D. Relpax Active Unknown /0000 Epipen 2-Darek Active Unknown / Excedrin Active Unknown Extra Strength Glucosamine Active Estrace Active Cream 0.1mg/GM 1 gm intravaginally once weekly Clobetasol Active Cream 0.05% use on affected Unknown area 2x daily for 2 weeks then 1 week off Augmentin Active Unknown / Coumadin 10/24 Hx Tablets 2mg 90tab take 1-3 tabs s by mouth at 5 Augustus, - at night as M.D. 11/30 directed Colace 10/24 Hx Capsules 100mg 90cap 1 tab by mouth Elizabeth s 2-3 times a day Augustus, - as needed M.D. 11/30 Percocet 02/28 Hx Tablets 5-325mg 90tab 1-2 tablets by s mouth every 4-6 Augustus, - hours as needed M.D. 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 Percocet 10/21 Hx Tablets 5-325mg 30tab 1-2 tablets by M25.562 [place] /2016 s mouth every 4-6 [place], - hours as needed ASSOCIATE PROFESSOR [employer]ITERACY 12/15 for pain Aspirin 10/21 Hx Tablets 325mg 20tab one by mouth M25.562 s twice a day for [place], - 10 days to ASSOCIATE PROFESSOR [employer]ITERAC[employer] 12/15 prevent blood clots post operatively Ibuprofen 10/04 Hx Tablets 800mg 60tab Take 1 Tablet s By Mouth Three Augustus, - Times Daily M.D. 12/10 With Food [place] 06/19 Hx Tablets 5-325mg 60tab 1-2 tab by Shawn s mouth every 4-6 Young, - hours as needed M.D. 09/29 pain Aspirin Hx Unknown / - 08/16 Medications Administered in Office Medication Date Status Form Strength Qnty SIG Indications Ordering Provider Depomedrol Administered Injection Elizabeth 40MG 018 Dione Coffman Depomedrol Administered Injection Elizabeth 40MG 017 Dione Coffman Depomedrol Administered Injection Elizabeth 40MG 017 Dione Coffman Depomedrol Administered Injection Elizabeth 40MG 016 Dione Coffman Depomedrol Administered Injection Elizabeth 40MG 016 Dione Coffman Depomedrol Administered Injection Jared 40MG Funmi Swan M.D. Synvisc Or Administered Injection Elizabeth Synvisc-One Funmi Coffman M.D. Injection 1 MG Synvisc Or Administered Injection Elizabeth Synvisc-One Funmi Coffman M.D. Injection 1 MG Synvisc Or Administered Injection Elizabeth Synvisc-One Funmi Coffman M.D. Injection 1 MG Synvisc Or Administered Injection Elizabeth Synvisc-One Funmi Coffman M.D. Injection 1 MG Synvisc Or Administered Injection Elizabeth Synvisc-One Funmi Coffman M.D. Injection 1 MG Synvisc Or Administered Injection Elizabeth Synvisc-One Queenie Coffman M.D. Injection 1 MG Synvisc Or Administered Injection Elizabeth Synvisc-One Queenie Coffman M.D. Injection 1 MG Synvisc Or Administered Injection Elizabeth Synvisc-One Queenie Coffman M.D. Injection 1 MG Immunizations CPT Code Status Date Vaccine Lot # [id number] Given 10/01/2007 Tetanus And Diptheria (Td) For Adult Use Preservative Free Vital Signs Date Vital Result Comment 12/11/2017 Height 67 inches 5'7" Weight 192.00 lb Heart Rate 84 /min BP Systolic 126 mmHg BP Diastolic 80 mmHg BMI (Body Mass Index) 30.1 kg/m2 11/25/2017 Height 67 inches 5'7" Weight 190.00 lb BP Systolic Sitting 118 mmHg BP Diastolic Sitting 78 mmHg Respiratory Rate 16 /min Pain Level 1 BMI (Body Mass Index) 29.8 kg/m2 08/17/2017 Height 67 inches 5'7" Weight 190.00 lb BP Systolic 124 mmHg BP Diastolic 84 mmHg Body Temperature 98.0 F BMI (Body Mass Index) 29.8 kg/m2 01/12/2017 Height 67 inches 5'7" Weight 180.00 lb Heart Rate 79 /min BP Systolic 124 mmHg BP Diastolic 86 mmHg Pain Level 1 BMI (Body Mass Index) 28.2 kg/m2 12/01/2016 Height 67 inches 5'7" Weight 184.00 lb Heart Rate 78 /min BP Systolic 112 mmHg BP Diastolic 76 mmHg Body Temperature 96.0 F Pain Level 1 BMI (Body Mass Index) 28.8 kg/m2 11/10/2016 Height 67 inches 5'7" Weight 194.00 lb Heart Rate 102 /min BP Systolic 113 mmHg BP Diastolic 82 mmHg Body Temperature 98.3 F Pain Level 2 BMI (Body Mass Index) 30.4 kg/m2 10/24/2016 Height 6767 inches 563'11" Weight 195.00 lb Heart Rate 73 /min BP Systolic 121 mmHg BP Diastolic 84 mmHg Body Temperature 95.5 F BMI (Body Mass Index) 0.0 kg/m2 09/26/2016 Height 67 inches 5'7" Weight 207.00 lb Heart Rate 76 /min BP Systolic 119 mmHg BP Diastolic 88 mmHg Respiratory Rate 16 /min Pain Level 7 BMI (Body Mass Index) 32.4 kg/m2 03/19/2016 Height 67 inches 5'7" Weight 197.00 lb Heart Rate 60 /min Respiratory Rate 16 /min Pain Level 2 BMI (Body Mass Index) 30.9 kg/m2 02/29/2016 Height 67 inches 5'7" Weight 197.00 lb Pain Level 3 BMI (Body Mass Index) 30.9 kg/m2 12/17/2015 Height 67 inches 5'7" Weight 197.00 lb Pain Level 2 BMI (Body Mass Index) 30.9 kg/m2 11/16/2015 Height 67 inches 5'7" Weight 197.00 lb Pain Level 2 BMI (Body Mass Index) 30.9 kg/m2 11/16/2015 Height 67 inches 5'7" Weight 197.00 lb Pain Level 4 BMI (Body Mass Index) 30.9 kg/m2 10/22/2015 Height 67 inches 5'7" Weight 195.00 lb Pain Level 4 BMI (Body Mass Index) 30.5 kg/m2 10/17/2015 Height 67 inches 5'7" Weight 195.00 lb Heart Rate 71 /min BP Systolic 115 mmHg BP Diastolic 74 mmHg BMI (Body Mass Index) 30.5 kg/m2 07/25/2015 Height 67 inches 5'7" Weight 190.00 lb Pain Level 3 BMI (Body Mass Index) 29.8 kg/m2 07/18/2015 Height 67 inches 5'7" Weight 190.00 lb Pain Level 5 BMI (Body Mass Index) 29.8 kg/m2 07/11/2015 Height 67 inches 5'7" Weight 190.00 lb Pain Level 6 BMI (Body Mass Index) 29.8 kg/m2 07/06/2015 Height 67 inches 5'7" Weight 190.00 lb Heart Rate 67 /min BP Systolic 137 mmHg BP Diastolic 86 mmHg BMI (Body Mass Index) 29.8 kg/m2 11/15/2014 Height 67 inches 5'7" Weight 190.00 lb Heart Rate 86 /min BP Systolic 129 mmHg BP Diastolic 86 mmHg Pain Level 3 BMI (Body Mass Index) 29.8 kg/m2 11/06/2014 Height 67 inches 5'7" Weight 190.00 lb Heart Rate 83 /min BP Systolic 116 mmHg BP Diastolic 83 mmHg Pain Level 1 BMI (Body Mass Index) 29.8 kg/m2 10/30/2014 Height 67 inches 5'7" Weight 190.00 lb Heart Rate 66 /min BP Systolic 124 mmHg BP Diastolic 89 mmHg Pain Level 0 BMI (Body Mass Index) 29.8 kg/m2 2014 Height 67 inches 5'7" Weight 190.00 lb Heart Rate 76 /min BP Systolic 123 mmHg BP Diastolic 84 mmHg Pain Level 3 BMI (Body Mass Index) 29.8 kg/m2 07/28/2014 Height 67 inches 5'7" Heart Rate 73 /min BP Systolic Sitting 120 mmHg BP Diastolic Sitting 78 mmHg 07/12/2014 Height 67 inches 5'7" Weight 190.00 lb Body Temperature 98.1 F BMI (Body Mass Index) 29.8 kg/m2 06/19/2014 Height 67 inches 5'7" Weight 190.00 lb Heart Rate 62 /min BP Systolic 130 mmHg BP Diastolic 80 mmHg BMI (Body Mass Index) 29.8 kg/m2 05/22/2014 Height 67 inches 5'7" Weight 190.00 lb Heart Rate 79 /min BP Systolic 134 mmHg BP Diastolic 85 mmHg BMI (Body Mass Index) 29.8 kg/m2 Results Test Date Test Result H/L Range Note Comp Metabolic Panel 10/24/2016 Sodium 138 mmol/L 133-145 Potassium 4.7 mmol/L 3.5-5.0 Chloride 101 mmol/L 101-111 Co2 Carbon Dioxide 30 mmol/L 22-32 Anion Gap 7 mmol/L 2-11 Glucose 106 mg/dL High 70-100 Blood Urea Nitrogen 23 mg/dL 6-24 Creatinine 0.84 mg/dL 0.51-0.95 BUN/Creatinine Ratio 27.4 High 8-20 Calcium 10.0 mg/dL 8.6-10.3 Total Protein 7.0 g/dL 6.4-8.9 Albumin 4.5 g/dL 3.2-5.2 Globulin 2.5 g/dL 2-4 Albumin/Globulin Ratio 1.8 1-3 Total Bilirubin 0.60 mg/dL 0.2-1.0 Alkaline Phosphatase 57 U/L 34-104 Alt 20 U/L 7-52 Ast 17 U/L 13-39 Egfr Non- 70.1 >60 Egfr 90.2 >60 1 Inr/Protime 10/24/2016 Inr 0.90 0.89-1.11 Laboratory test finding 10/24/2016 Partial Thrombo Time 32.6 seconds 26.0 -36.3 PTT CBC No Diff 10/24/2016 White Blood Count 6.5 10^3/uL 3.5-10.8 Red Blood Count 4.71 10^6/uL 4.0-5.4 Hemoglobin 14.3 g/dL 12.0-16.0 Hematocrit 43 % 35-47 Mean Corpuscular Volume 90 fL 80-97 Mean Corpuscular Hemoglobin 30 pg 27-31 Mean Corpuscular HGB Conc 34 g/dL 31-36 Red Cell Distribution Width 14 % 10.5-15 Platelet Count 285 10^3/uL 150-450 Mean Platelet Volume 8 um3 7.4-10.4 Type & Screen 10/24/2016 Patient Blood Type A Positive Antibody Screen NEGATIVE Urinalysis Profile 10/24/2016 Urine Color Yellow Urine Appearance Clear Urine Specific [place] 1.020 1.010-1.030 Urine pH 6.0 5-9 Urine Urobilinogen Negative Negative Urine Ketones Negative Negative Urine Protein Negative Negative Urine Leukocytes Negative Negative Urine Blood Negative Negative Urine Nitrite Negative Negative Urine Bilirubin Negative Negative Urine Glucose Negative Negative Urine Culture And Sensitivities 10/24/2016 Urine Culture SEE RESULT BELOW 2 1 Because ethnic data is not always readily available, this report includes an eGFR for both -Americans and non- Americans. The National Kidney Disease Education Program (NKDEP) does not endorse the use of the MDRD equation for patients that are not between the ages of 18 and 70, are , have extremes of body size, muscle mass, or nutritional status, or are non- or non-. According to the National Kidney Foundation, irrespective of diagnosis, the stage of the disease is based on the level of kidney function: Stage Description GFR(mL/min/1.73 m(2)) 1 Kidney damage with normal or decreased GFR 90 2 Kidney damage with mild decrease in GFR 60-89 3 Moderate decrease in GFR 30-59 4 Severe decrease in GFR 15-29 5 Kidney failure <15 (or dialysis) 2 SEE RESULT BELOW Name: BEBA MACIAS : [address]: Elizabeth Coffman MD Acct: [id number] Unit: [id number] AGE: 56 Location: [facility] Re10/24/16 SEX: F Status: REG REF SPEC: [id number] KAY: 10/24/16-[address] [facility] [address]: Elizabeth Coffman MD REQ: [id number] RECD: 10/24/16-1226 STATUS: COMP [facility] DR: Brennan Rob MD _ SOURCE: URINE SPDESC: ORDERED: Urine Culture QUERIES: Urine Source: Clean Catch Procedure Result Reported Site Urine Culture Final 10/25/16- 1215 ML No Growth (<1,000 CFU/mL) * ML - MAIN LAB ([facility]) . END OF REPORT * ML=Testing performed at Main Lab DEPARTMENT OF PATHOLOGY, [address] [place] [address] Da Smith M.D. Director [facility] # [id number] Procedures Date CPT Code Description Status 08/17/2017 Inject/Drain Joint/Bursa Major W/O US Completed 11/01/2016 75092 EKG, Interpretation Only Completed 10/30/201646126 TKR Total Knee Replacement Completed 10/30/201608411 TKR Total Knee Replacement Completed 09/26/2016 75666 Inject/Drain Joint/Bursa Major W/O US Completed 03/19/201605934 Inject/Drain Joint/Bursa Major W/O US Completed 11/16/2015 92415 Inject Tendon Sheath Or Ligament Aponeurosis Eg Plantar Completed Fascia 11/01/2015 99983 Arthroscopy,Knee,Meniscectomy Medial Or Lateral Completed 11/01/2015 35367 Arthroscopy,Knee,Meniscectomy Medial Or Lateral Completed 07/25/2015 91059 Inject/Drain Joint/Bursa Major W/O US Completed 07/18/2015 66573 Inject/Drain Joint/Bursa Major W/O US Completed 07/11/2015 24676 Inject/Drain Joint/Bursa Major W/O US Completed 06/29/2015 38939 ECHO Transthoracic, Real-Time 2D With Doppler And Color Completed Flow 11/15/201472748 Inject/Drain Joint/Bursa Major W/O US Completed 11/06/2014 85520 Inject/Drain Joint/Bursa Major W/O US Completed 10/30/2014 34344 Inject/Drain Joint/Bursa Major W/O US Completed 06/29/2014 87292 Arthroscopy,Knee,Meniscectomy Medial Or Lateral Completed 06/29/2014 15920 Arthroscopy,Knee,Meniscectomy Medial Or Lateral Completed 05/22/2014 66316 Xray Knee 3 Views Completed 05/22/2014 28846 Xray Knee 3 Views Completed 07/14/2013 84400 Polysomnography Sleep Staging 4+ Parameters W/Cpap Completed 07/14/2013 43542 Polysomnography Sleep Staging 4+ Parameters W/Cpap Completed 06/30/2013 87505 Polysomnography Sleep Staging 4+ Parameters Completed 08/10/2008 89636 Biopsy Skin Lesion Single Completed 11/19/2004 79046 ECHO/Stress Completed 11/19/2004 17710 Stress Test Completed Encounters Type Date Location Provider CPT E/M Dx Office Visit 11/25/2017 [facility] M.D. 16160 M17.11 8:30a [facility] M25.561 M25.461 Z96.652 Office Visit 08/17/2017 9:45a [facility]ff[facility] M.D. 64745 M17.11 [facility] M25.561 M25.461 Office Visit 11/03/2016 2:07p [facility], 11612 R00.0 Assoc,pc [facility] Hospitalists E03.9 Z96.652 Office Visit 11/02/2016 2:07p [facility], 56160 R00.0 Assoc,pc [facility] Hospitalists E03.9 Z96.652 Office Visit 11/01/2016 2:06p [facility] ASSOCIATE PROFESSOR OF LITERACY 80335 R00.0 Hospitalists E03.9 Z96.652 Office Visit 09/26/2016 8:30a [facility] M.D. 02891 M17.0 [facility]. Office Visit 02/29/2016 8:15a [facility] M.D. 10654 M17.0 C.M.A. M25.562 M25.561 M17.12 Office Visit 10/22/2015 9:00a [facility] M.D. 41403 M25.562 [facility]. M25.462 M17.12 S83.241D Office Visit 10/17/2015 2:20p [facility] Jared Swan 24606 M79.672 C.M.A. Dione M72.2 Office Visit 07/06/2015 2:30p [facility] M.D. 36033 M17.0 C.M.A. Office Visit 2014 2:45p [facility] M.D. 51617 715.16 C.M.A. Office Visit 05/22/2014 1:00p [facility] M.D. 29514 836.0 C.M.A. 715.36 Office Visit 08/28/2008 11:00a DO Not Use Maritza Pyle, 43958 461.9 Kristal-Berhane N.P. Office Visit 08/10/2008 10:15a DO Not Use Ghada Cisse, 20508 V72.31 Fred Parham 272.0 569.49 Office Visit 07/28/2008 8:30a DO Not Use Field Secretary[employer] Maritza Varn, 36363 709.9 N.P. 719.40 Office Visit 07/14/2008 4:00p DO Not Use Mila Winters M.D., 69155 565.0 Field Secretary[employer] FACP Office Visit 06/29/2007 9:00a DO Not Use Maritza Varn, 73057 V72.31 Field Secretary[employer] N.P. 346.90 244.9 272.0 Office Visit 02/26/2007 11:30a DO Not Use Maritza Varn, 00669 616.10 Field Secretary[employer] N.P. Office Visit 01/21/2007 8:30a DO Not Use Maritza Varn, 21729 627.2 Field Secretary[employer] N.P. 244.9 627.3 Office Visit 12/31/2006 8:45a DO Not Use Maritza Varn, 18636 616.10 Field Secretary[employer] N.P. 626.0 401.1 Office Visit 06/26/2006 1:45p DO Not Use Ghada Cisse, 28290 244.9 Field Secretary-[employer]ane M.DSoren Plan of Care Future Appointment(s):01/11/2018 8:15 am - Elizabeth Coffman M.D. at [facility].12/24/2017 8:30 am - Arie Erickson PA-C at [facility]12/24/2017 8:30 am - KRYSTLE Pollard at [facility]12/24/2017 8:30 am - Elizabeth Coffman M.D. at [facility]12/11/2017 - Elizabeth Coffman M.D.M17.11 Unilateral primary osteoarthritis, right kneeFollow up:Follow up: 2 weeks after surgery ( the thursday Augustus returns)M25.561 Pain in right kneeM25.461 Effusion, right knee
--- OUTSIDE RECORDS SUMMARY | 2017-12-24 06:50 | XMS REPORT ---
:1960 External Reference #:[id number] Author Organization [facility] Address [address] [place] [address] Phone [phone] Care Team Providers Name Role Phone Brennan Rob MD Care Team Information Housekeeper Unavailable Brennan Rob MD Primary Care Physician Unavailable Payers Type Date Identification Numbers Payment Provider Subscriber Commercial Effective: Policy Number: BluePPO Juan David Pop 2010 [id number] PayID: [id number] [address] [place] [address] Problems Date Description Provider Status Onset: 07/07/2011 Hypothyroidism Aman Mena M.D. Active Onset: 06/02/2014 Arthralgia of the lower leg Brennan Rob M.D. Active Onset: 09/30/2016 Localized, primary osteoarthritis Brennan Rob M.D. Active Onset: 09/30/2016 Migraine with typical aura Brennan Rob M.D. Active Onset: 07/07/2017 Celiac disease Brennan Rob M.D. Active Onset: 07/07/2017 Degenerative joint disease Brennan Rob M.D. Active involving multiple joints Onset: 07/07/2017 Mitral valve disorder Brennan Rob M.D. Active Onset: 10/06/2011 Acute sinusitis Radha Barrera M.D. Inactive Inactive: 06/03/2014 Onset: 12/28/2012 Chest pain Brennan Rob M.D. Inactive Inactive: 06/03/2014 Onset: 12/28/2012 Headache Brennan Rob M.D. Inactive Inactive: 12/08/2017 Onset: 12/28/2012 Allergic condition Brennan Rob M.D. Inactive Inactive: 12/08/2017 Onset: 06/08/2015 Adult health examination Brennan Rob M.D. Inactive Inactive: 12/08/2017 Onset: 06/08/2015 Glossodynia Brennan Rob M.D. Inactive Inactive: 12/08/2017 Onset: 10/30/2015 Symptom of skin and integumentary Brennan Rob M.D. Inactive tissue Inactive: 12/08/2017 Onset: 10/30/2015 Encounter for other preprocedural Brennan Rob M.D. Inactive examination Inactive: 12/08/2017 Onset: 06/12/2016 Diarrhea Brennan Rob M.D. Inactive Inactive: 12/08/2017 Onset: 09/30/2016 Acute serous otitis media Brennan Rob M.D. 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 vulanate s day w/ food. Shallish, Potassium M.D. Epipen 2-Darek 07/07 Active Solution 0.3mg/0.3 2unit use as Brennan F. Auto-Inje ML s directed for amy Rob anaphylactic M.D. reaction Clobetasol 10/29 Active Ointment 0.05% 45gm apply to Brennan F. affected Shallish, area(s) two M.D. times daily as needed Synthroid 03/03 Active Tablets 137mcg 90tab Take One Brennan F. s Tablet By Shallish, Mouth Every M.D. Day Estrace Active Cream 0.1mg/GM 42.50 insert 1 Unknown 0gm applicator full pv three times a wk for 1 month then biweekly Relpax Active Tablets 40mg 6tabs Take 1 G43.109 Brennan F. Tablet By Shallish, Mouth AT M.D. Start Of A Headache, Repeat In 2 Hours as Needed Vitamin B12 Active 1 by mouth Unknown every day Vitamin D Active Capsules 1 by mouth Unknown every day Metamucil Active Capsules 0.52gm 5 capsules Unknown twice daily Multivitamin Active Tablets 1 by mouth Unknown every day Tamiflu 08/08 Hx Capsules 75mg 10cap 1 by mouth Brennan F. s twice a day Liane - M.D. 11/27 Note 06/08 Hx 4unit typhoid oral Brennan . s vaccine , 1 Liane, - po qod for 4 M.D. 10/29 doses Cipro 06/08 Hx Tablets 500mg 20tab 1 by mouth Brennan F. s twice a day Liane - M.D. 10/29 Guaifenesin ac 04/26 Hx Syrup 100-10mg/ 4oz 1-2 teaspoon 466.0 Rylee 5ML every 4 Danay, - hours as Afnp-C 06/03 needed for cough Auvi-Q 02/10 Hx Soaj 0.3mg/0.3 1unit use prn . ML s anaphylaxis Liane - M.D. 07/07 Medrol Dosepak 01/03 Hx Tablets 4mg 1pack take as 782.9 [place] directed Adrianna, - HEAD CHOPPER 02/10 Azithromycin 03/16 Hx Tablets 250mg 6tabs 2 po qd x1 466.0 Karen then 1 po qd [place], - x 4 more Afnp-C 03/21 days Maxalt-[employer] TE[employer] 12/17 Hx Tablets 5mg 12tab Place 1 Brennan . Dispers s tablet on Liane, - the tongue M.D. 02/10 and allow dissolve one time for migraine headache Augmentin 10/08 Hx Tablets 875-125mg 20tab 1 po bid x Brennan F. /2011 s 10 days Soniya Rob M.D. 10/18 Azithromycin 10/05 Hx Tablets 250mg 6tabs 2 po today 461.8 Radha M. and 1 po x 4 LaFace, - days M.D. 10/08 Azithromycin 04/09 Hx Tablets 250mg 6tabs 2 po today 465.9 Newton A. and 1 po x 4 Dione Mena - days 10/05 Robitussin A-C 04/09 Hx 80cc 1-2 tsp po 465.9 Newton A. qhs prn Dione Mena - cough 10/05 Levaquin 04/09 Hx Tablets 500mg 10tab 1 po qd Newton . s Dione Mena - 10/05 Doxycycline 01/15 Hx Capsules 100mg 20cap take one Brennan F. Hycl s capsule by Liane, - mouth twice M.D. 01/25 a /2010 Cephalexin 01/13 Hx Tablets 500mg 20tab 1 po bid Logan T. s Soniya Owusu M.D. 01/15 Metoprolol 11/11 Hx Tablets 25mg 30tab 1 po qd Brennan F. Succinate ER /2010 ER 24HR s Soniya Rob M.D. 01/13 Epipen 2-Darek 11/11 Hx Device 0.3mg/0.3 1unit as directed Brennan F. ML s for allergy Soniya Rob M.D. 06/03 Prednisone 05/08 Hx Tablets 5mg 78tab 12 po today, 782.1 Tony A. s decrease by Viv, - 1 qd until M.DSoren 05/20 Ranitidine HCL 05/08 Hx Tablets 150mg 7tabs 1 po qd 782.1 Tony A. /2009 Soniya Nam M.D. 05/15 Fexofenadine 05/08 Hx Tablets 180mg 7tabs 1 po qd 782.1 Tony A. HCL /2009 Soniya Nam M.D. 05/15 Epipen 2-Darek 09/11 Hx Device 0.3mg/0.3 1unit as directed Brennan . ML s for allergy Liane - (1:1000 M.Kurt 11/11 Ciprofloxacin 10/30 Hx Tablets 500mg 0tabs 1 bid X 10 Family /2005 [facility] Tamiflu 07/31 Hx 75mg 5unit 1 tablet [place] /2005 s once a day Soniya Ledbetter M.D. 11/12 Zithromax 05/09 Hx 250mg 6unit 2 tabs day 1 Karen s Soniya Finley Afnp-C 05/14 1 tab qd /2002 days 2 thru 5 Synthroid 09/21 Hx .125mg 100un 1 PO Q0D Brennan F. its Soniya Rob M.D. 03/03 W/.15MG qod Insulin 04/08 Hx Brennan F. Syringes Soniya Rob M.D. 04/08 Synthroid 04/08 Hx .15mg 100un 1 PO Q0D Brennan F. Soniya Locke M.D. 03/03 Naproxen 11/14 Hx 500mg 60uni 1 po bid prn Brennan F. Soniya Rob M.D. 05/08 Ercaf 11/14 Hx 50uni 1 PO 5 X Day Brennan F. Soniya Hoang M.D. 10/01 Imitrex 11/14 Hx 100mg 9unit 1 po q2h prn Brennan F. s Soniya Rob M.D. 09/11 Imitrex Nasal 11/14 Hx 20mg 6unit One [place] Brennan FSoren [place] Intranasal Soniya Rob M.D. 03/03 Repeat In 2 HRS Synthroid 03/31 Hx 125mcg 100un 1 PO qd Brennan F. its Soniya Rob M.D. 04/08 Hydrocortisone 03/31 Hx 2.5 30gm Apply tid Brennan F. prn Soniya Rob M.D. 09/21 Clobetasol Hx Ointment use bid Unknown Propionate /0000 - 10/29 Glucosamine-Cho 00/ Hx Capsules 500-400mg Unknown ndroitin /0000 - 06/03 Immunizations CPT Code Status Date Vaccine Lot # [id number] Given 12/28/2012 Tdap Tetanus, W Pertussis [id number] Given 11/09/1976 Measles & Rubella Immunization 19917 Given 11/20/1975 Measles Immunization 24602 Given 10/31/1968 Mumps Immunization 20097 Given 11/09/1962 Measles Immunization Vital Signs Date Vital Result Comment 12/08/2017 BP Systolic 128 mmHg BP Diastolic 80 mmHg Heart Rate 60 /min Body Temperature 98.4 F Respiratory Rate 16 /min Height 66.25 inches 5'6.25" Weight 194.00 lb BMI (Body Mass Index) 31.1 kg/m2 07/07/2017 BP Systolic 118 mmHg BP Diastolic 80 mmHg Heart Rate 68 /min Body Temperature 97.5 F Height 66.25 inches 5'6.25" Weight 187.00 lb BMI (Body Mass Index) 30.0 kg/m2 09/30/2016 BP Systolic 130 mmHg BP Diastolic 80 mmHg Heart Rate 60 /min Body Temperature 97.9 F Respiratory Rate 16 /min Height 66.25 inches 5'6.25" Weight 199.12 lb BMI (Body Mass Index) 31.9 kg/m2 06/12/2016 BP Systolic 120 mmHg BP Diastolic 80 mmHg Heart Rate 75 /min Body Temperature 97.7 F Respiratory Rate 16 /min Height 66.25 inches 5'6.25" Weight 197.00 lb BMI (Body Mass Index) 31.6 kg/m2 10/30/2015 BP Systolic 120 mmHg BP Diastolic 80 mmHg Heart Rate 76 /min Body Temperature 98.1 F Respiratory Rate 16 /min Height 66.25 inches 5'6.25" Weight 202.00 lb BMI (Body Mass Index) 32.4 kg/m2 06/08/2015 BP Systolic 118 mmHg BP Diastolic 74 mmHg Heart Rate 80 /min Body Temperature 97.5 F Respiratory Rate 18 /min Height 66.25 inches 5'6.25" Weight 199.00 lb BMI (Body Mass Index) 31.9 kg/m2 03/22/2015 BP Systolic 120 mmHg BP Diastolic 80 mmHg Heart Rate 72 /min Body Temperature 97.9 F Respiratory Rate 18 /min Height 66.25 inches 5'6.25" Weight 194.00 lb BMI (Body Mass Index) 31.1 kg/m2 06/02/2014 BP Systolic 120 mmHg BP Diastolic 80 mmHg Heart Rate 80 /min Body Temperature 97.9 F Respiratory Rate 80 /min Height 66.25 inches 5'6.25" Weight 197.00 lb BMI (Body Mass Index) 31.6 kg/m2 04/26/2014 BP Systolic 120 mmHg BP Diastolic 82 mmHg Heart Rate 84 /min Body Temperature 98.2 F Respiratory Rate 16 /min O2 % BldC Oximetry 98 % Height 66.25 inches 5'6.25" Weight 196.50 lb BMI (Body Mass Index) 31.5 kg/m2 02/10/2014 BP Systolic 118 mmHg BP Diastolic 80 mmHg Heart Rate 76 /min Body Temperature 97.7 F Respiratory Rate 16 /min Height 66.25 inches 5'6.25" Weight 195.00 lb BMI (Body Mass Index) 31.2 kg/m2 01/03/2013 BP Systolic 126 mmHg BP Diastolic 80 mmHg Heart Rate 64 /min Body Temperature 98.1 F Height 66.25 inches 5'6.25" Weight 193.00 lb BMI (Body Mass Index) 30.9 kg/m2 12/28/2012 BP Systolic 124 mmHg BP Diastolic 80 mmHg Heart Rate 78 /min Body Temperature 98.5 F Respiratory Rate 16 /min Height 66.25 inches 5'6.25" measured Weight 189.38 lb BMI (Body Mass Index) 30.3 kg/m2 03/16/2012 BP Systolic 132 mmHg BP Diastolic 74 mmHg Heart Rate 78 /min Body Temperature 98.0 F Height 66.5 inches 5'6.50" Weight 197.00 lb BMI (Body Mass Index) 31.3 kg/m2 10/06/2011 BP Systolic 114 mmHg BP Diastolic 72 mmHg Heart Rate 76 /min Body Temperature 99.3 F Height 66.5 inches 5'6.50" Weight 196.00 lb BMI (Body Mass Index) 31.2 kg/m2 04/09/2011 BP Systolic 124 mmHg BP Diastolic 80 mmHg Heart Rate 100 /min Body Temperature 98.0 F Respiratory Rate 20 /min O2 % BldC Oximetry 97 % Height 66.5 inches 5'6.50" Weight 196.00 lb BMI (Body Mass Index) 31.2 kg/m2 01/13/2011 BP Systolic 130 mmHg BP Diastolic 80 mmHg Heart Rate 64 /min Body Temperature 98.2 F Height 66.5 inches 5'6.50" Weight 198.00 lb BMI (Body Mass Index) 31.5 kg/m2 11/11/2010 BP Systolic 110 mmHg BP Diastolic 70 mmHg Heart Rate 60 /min Body Temperature 98.1 F Respiratory Rate 20 /min Height 66.5 inches 5'6.50" Weight 198.00 lb BMI (Body Mass Index) 31.5 kg/m2 05/08/2010 BP Systolic 142 mmHg BP Diastolic 80 mmHg Heart Rate 68 /min Body Temperature 97.9 F Respiratory Rate 16 /min Height 66.5 inches 5'6.50" Weight 194.00 lb BMI (Body Mass Index) 30.8 kg/m2 09/11/2009 BP Systolic 112 mmHg BP Diastolic 80 mmHg Heart Rate 80 /min Body Temperature 98.2 F Height 66.5 inches 5'6.50" Weight 191.00 lb BMI (Body Mass Index) 30.4 kg/m2 02/04/2006 BP Systolic 130 mmHg BP Diastolic 80 mmHg Heart Rate 80 /min Body Temperature 98.5 F 11/20/2005 BP Systolic 114 mmHg BP Diastolic 60 mmHg Heart Rate 76 /min Weight 186.00 lb 10/30/2005 BP Systolic 136 mmHg BP Diastolic 80 mmHg Heart Rate 66 /min Weight 185.00 lb 12/17/2004 BP Systolic 124 mmHg BP Diastolic 70 mmHg Heart Rate 72 /min Body Temperature 97.3 F Weight 162.00 lb 11/12/2004 BP Systolic 146 mmHg BP Diastolic 84 mmHg Heart Rate 84 /min Weight 158.00 lb 05/09/2003 BP Systolic 112 mmHg BP Diastolic 70 mmHg Heart Rate 84 /min Body Temperature 98.5 F Weight 147.00 lb 03/03/2003 BP Systolic 120 mmHg BP Diastolic 76 mmHg Heart Rate 72 /min Weight 152.00 lb 10/14/2001 BP Systolic 132 mmHg BP Diastolic 76 mmHg Weight 172.00 lb 09/21/2000 BP Systolic 130 mmHg BP Diastolic 80 mmHg Heart Rate 78 /min Weight 173.00 lb 04/08/2000 BP Systolic 110 mmHg BP Diastolic 72 mmHg Heart Rate 70 /min Weight 168.00 lb 10/01/1998 Weight 168.00 lb 11/14/1997 BP Systolic 114 mmHg BP Diastolic 70 mmHg Weight 168.50 lb 03/21/1997 Weight 172.00 lb Results Test Date Test Result H/L Range Note CBC Electronic ([facility]) 12/08/2017 WBC 7.66 4.0-10.0 RBC 4.44 3.93-6.0 Hemoglobin ([facility]/CMC/CTX) 13.8 g/dL 12.0-17.0 Hematocrit ([facility]/CMC/CTX) 40.0 % 35.0-50.0 Mean Corpuscular Vol 90.1 fL 80-95 Mean Corpuscular Hemoglobin 31.1 pg 25.6-32.2 Mean Corpuscular Hemo Concen 34.5 g/dL 32.2-36.0 Platelets 308 10^3/ul 163-400 RDW-CV 13.0 11.6-14.4 Mean Platelet Volume 9.0 fL Low 9.4-12.4 Absolute Neutrophils BLD 5.15 1.56-6.13 Absolute Lymphocytes 1.71 1.18-3.74 Absolute Monocytes BLD Auto 0.57 0.24-0.82 Absolute Eos Blood 0.18 0.04-0.54 Absolute Basophils 0.04 0.01-0.08 Neutrophil % 67.4 34.0-70.0 Lymph% 22.3 % 20.0-52.0 Monocytes % 7.4 % 5.0-12.0 Eos % 2.3 % 0.7-7.0 Basophil% 0.5 % 0.1-1.2 Laboratory test finding 09/09/2017 Cytology SEE RESULT BELOW 1 Laboratory test finding 07/07/2017 Rheumatoid Factor <15 IU/mL <15 2 Nuclear AB (Monica) By Ifa Igg <1:80 (Negative) 3 Lyme Western Blot 07/07/2017 Lyme Disease IgG Ab WB Negative Negative Lyme Disease IgG Bands Present p41, kDa Lyme Disease IgM Ab WB Negative Negative Lyme Disease IgM Bands Present No bands detecte <SEE NOTE> kDa 4 Lyme Disease Interpretation See Comment 5 Laboratory test finding 07/07/2017 C Reactive Protein 6.49 mg/L High < 5.00 6 Protein Electrophoresis 07/07/2017 Total Protein(Pep) 7.5 g/dL 6.3 - 7.9 Albumin 3.9 g/dL 3.4-4.7 Alpha-1 Globulin 0.3 g/dL 0.1-0.3 Alpha-2 Globulin 1.2 g/dL 0.6-1.0 Beta Globulin 1.2 g/dL 0.7-1.2 Gamma Globulin 0.9 g/dL 0.6-1.6 Albumin/Globulin Ratio 1.08 Impression See Comment 7 Laboratory test finding 07/07/2017 TSH 2.36 mIU/L 0.50-6.00 Free T4 1.24 ng/dL 0.75-1.54 Comprehensive Metabolic Prof 07/07/2017 Sodium 145 mEq/L 134-149 Potassium 4.4 mEq/L 3.6-5.5 Chloride 105 mEq/L 94-112 Carbon Dioxide 25 mEq/L 21-32 Glucose 102 mg/dL 70-105 BUN 24 mg/dL 6-26 Creatinine 0.8 mg/dL 0.6-1.4 BUN/Creat Ratio 30.0 CALC 8.0-36.0 Calcium 9.6 mg/dL 8.6-10.2 Total Protein 6.7 g/dL 6.4-8.3 Albumin 4.6 g/dL 3.8-5.5 Globulin 2.1 g/dL 2.0-4.8 A/G Ratio 2.2 CALC 0.6-2.3 Alk. Phosphatase 54 U/L 30-110 Alt (SGPT) 17 U/L 7-35 Ast (Sgot) 18 U/L 5-34 Total Bilirubin 0.7 mg/dL 0.2-1.3 GFR Non- >60 ml/min/1.73m^ >=60 GFR >60 ml/min/1.73m^ >=60 Lipid Profile 07/07/2017 Cholesterol 247 mg/dL High 120-200 Triglycerides 68 mg/dL 30-200 HDL Cholesterol 92 mg/dL High 30-85 8 LDL (Calculated) 141 CALC High 0-129 VLDL Cholesterol 14 mg/dL 0-50 HDL Risk Factor 2.7 CALC 0.0-4.4 CBC Electronic ([facility]) 07/07/2017 WBC 5.8 3.6-9.6 RBC 4.58 3.90-5.70 Hemoglobin ([facility]/CMC/CTX) 13.8 g/dL 12.1 - 17.2 Hematocrit ([facility]/CMC/CTX) 41.8 % 36.1 - 50.3 Platelets 323 10^3/ul 150-400 Lymph% 29.3 % 17.0-48.0 Mixed% 4.0 Neutrophils % 66.7 Mean Corpuscular Vol 91 82.2-97.4 Mean Corpuscular Hemoglobin 30.0 27.6-33.3 Mean Corpuscular Hemo Concen 33.0 32.0-36.0 RDW 14.1 High 11.6-13.7 Mean Platelet Volume 6.8 5.5-11.0 Complete Blood Count 07/07/2017 WBC 5.8 x10^3/UL 3.6-9.6 RBC 4.58 x10^6/UL 3.90-5.70 HGB 13.8 g/dL 12.1-17.2 HCT 42 % 36-50 MCV 91.0 fL 82.2-97.4 MCH 30.0 pg 27.6-33.3 MCHC 33.0 g/dL 33.0-35.5 RDW 14.1 % High 11.6-13.7 PLT 323 x10^3/UL 150-400 MPV 6.8 fL Low 7.4-10.4 Gran # 3.9 x10^3/UL 1.5-7.2 Lymph# 1.7 x10^3/UL 0.7-4.9 Dickson# 0.2 x10^3/UL 0.1-0.9 Gran % 66.7 % 42.2-75.2 Lymph % 29.3 % 20.5-51.1 Dickson% 4.0 % 1.7-9.3 Ua - Non Micro (a) 07/07/2017 Appearance clear Color yellow Glucose, Urine (a/[facility]/CTX) neg Bilirubin neg Ketones 15mg/dl SP Grav >=1.030 Blood neg PH 5.5 Protein neg Urobil 0.2 Nitrite neg Leukocytes ([facility]/Centrex) neg Laboratory test finding 12/04/2016 Surgical Interface Order SEE RESULT BELOW 9 Laboratory test finding 12/04/2016 Clotest SEE RESULT BELOW 10 Laboratory test finding 10/24/2016 Urine Culture And SEE RESULT BELOW 11 Sensitivities Urinalysis Profile 10/24/2016 Urine Color Yellow Urine Appearance Clear Urine Specific [place] 1.020 1.010-1.030 Urine pH 6.0 5-9 Urine Urobilinogen Negative Negative Urine Ketones Negative Negative Urine Protein Negative Negative Urine Leukocytes Negative Negative Urine Blood Negative Negative Urine Nitrite Negative Negative Urine Bilirubin Negative Negative Urine Glucose Negative Negative Type & Screen 10/24/2016 Patient Blood Type A Positive Antibody Screen NEGATIVE CBC No Diff 10/24/2016 White Blood Count 6.5 10^3/uL 3.5-10.8 Red Blood Count 4.71 10^6/uL 4.0-5.4 Hemoglobin 14.3 g/dL 12.0-16.0 Hematocrit 43 % 35-47 Mean Corpuscular Volume 90 fL 80-97 Mean Corpuscular Hemoglobin 30 pg 27-31 Mean Corpuscular HGB Conc 34 g/dL 31-36 Red Cell Distribution Width 14 % 10.5-15 Platelet Count 285 10^3/uL 150-450 Mean Platelet Volume 8 um3 7.4-10.4 Comp Metabolic Panel 10/24/2016 Sodium 138 mmol/L [...] Egfr Non- 70.1 >60 Egfr 90.2 >60 12 Laboratory test 10/24/2016 Partial Thrombo 32.6 seconds 26.0-36.3 finding Time PTT Inr/Protime 10/24/2016 Inr 0.90 0.89-1.11 Laboratory test 06/17/2016 Parasitic See Comment 13, 14 finding Examination Laboratory test 06/17/2016 C Difficile PCR SEE RESULT 13, 15 finding BELOW Laboratory test 06/12/2016 C Reactive Protein 7.21 mg/L High < 5.00 16 finding Comprehensive 06/12/2016 Sodium 140 mEq/L 134-149 Metabolic Prof Potassium 4.2 mEq/L 3.6-5.5 Chloride 101 mEq/L 94-112 Carbon Dioxide 23 mEq/L 21-32 Glucose 113 mg/dL High 70-105 17 BUN 24 mg/dL 6-26 Creatinine 0.7 mg/dL 0.6-1.4 BUN/Creat Ratio 34.3 CALC 8.0-36.0 Calcium 9.7 mg/dL 8.6-10.2 Total Protein 6.9 g/dL 6.4-8.3 Albumin 4.6 g/dL 3.8-5.5 Globulin 2.3 g/dL 2.0-4.8 A/G Ratio 2.0 CALC 0.6-2.3 Alk. Phosphatase 64 U/L 30-110 Alt (SGPT) 19 U/L 7-35 Ast (Sgot) 19 U/L 5-34 Total Bilirubin 0.5 mg/dL 0.2-1.3 GFR Non- >60 ml/min/1.73m^ >=60 GFR >60 ml/min/1.73m^ >=60 Celiac Panel 06/12/2016 Tissue Transglutaminase IgA Ab <1.2 U/mL 18 Immunoglobulin A 95 mg/dL 61 - 356 Celiac Interpretation See Comment 19 Complete Blood Count 06/12/2016 WBC 5.2 x10^3/UL 3.6-9.6 RBC 4.10 x10^6/UL 3.90-5.70 HGB 12.8 g/dL 12.1-17.2 HCT 38 % 36-50 MCV 91.0 fL 82.2-97.4 MCH 31.2 pg 27.6-33.3 MCHC 34.2 g/dL 33.0-35.5 RDW 14.1 % High 11.6-13.7 PLT 327 x10^3/UL 150-400 MPV 6.4 fL Low 7.4-10.4 Gran # 3.6 x10^3/UL 1.5-7.2 Lymph# 1.4 x10^3/UL 0.7-4.9 Dickson# 0.2 x10^3/UL 0.1-0.9 Gran % 66.8 % 42.2-75.2 Lymph % 27.4 % 20.5-51.1 Dickson% 5.8 % 1.7-9.3 Laboratory test finding 06/12/2016 Free T4 1.48 ng/dL 0.75-1.54 TSH 0.31 mIU/L Low 0.50-6.00 20 Laboratory test finding 06/08/2015 Vitamin B-12 863 pg/mL 230-1050 Lipid Profile 06/08/2015 Cholesterol 243 mg/dL High 120-200 Triglycerides 121 mg/dL 30-200 HDL Cholesterol 80 mg/dL 30-85 LDL (Calculated) 139 CALC High 0-129 VLDL Cholesterol 24 mg/dL 0-50 HDL Risk Factor 3.0 CALC 0.0-4.4 Laboratory test finding 06/08/2015 TSH 1.77 mIU/L 0.50-6.00 Free T4 1.42 ng/dL 0.75-1.54 Complete Blood Count 06/08/2015 WBC 7.3 x10^3/UL 3.6-9.6 RBC 4.48 x10^6/UL 3.90-5.70 HGB 13.9 g/dL 12.1-17.2 HCT 42 % 36-50 MCV 94.0 fL 82.2-97.4 MCH 31.1 pg 27.6-33.3 MCHC 33.2 g/dL 33.0-35.5 RDW 13.6 % 11.6-13.7 PLT 367 x10^3/UL 150-400 MPV 7.3 fL Low 7.4-10.4 Gran # 5.5 x10^3/UL 1.5-7.2 Lymph# 1.6 x10^3/UL 0.7-4.9 Dickson# 0.2 x10^3/UL 0.1-0.9 Gran % 73.2 % 42.2-75.2 Lymph % 23.3 % 20.5-51.1 Dickson% 3.5 % 1.7-9.3 Comprehensive Metabolic Prof 06/08/2015 Sodium 141 mEq/L 134-149 Potassium 4.3 mEq/L 3.6-5.5 Chloride 101 mEq/L 94-112 Carbon Dioxide 25 mEq/L 21-32 Glucose 104 mg/dL 70-105 BUN 25 mg/dL 6-26 Creatinine 0.9 mg/dL 0.6-1.4 BUN/Creat Ratio 27.8 CALC 8.0-36.0 Calcium 9.8 mg/dL 8.6-10.2 Total Protein 7.5 g/dL 6.4-8.3 Albumin 4.7 g/dL 3.8-5.5 Globulin 2.8 g/dL 2.0-4.8 A/G Ratio 1.7 CALC 0.6-2.3 Alk. Phosphatase 53 U/L 30-110 Alt (SGPT) 21 U/L 7-35 Ast (Sgot) 18 U/L 5-34 Total Bilirubin 0.3 mg/dL 0.2-1.3 GFR Non- >60 ml/min/1.73m^ >=60 GFR >60 ml/min/1.73m^ >=60 Ua - Non Micro ([facility]) 06/08/2015 Appearance clear Color yellow Glucose, Urine ([facility]/CMC/CTX) - Bilirubin - Ketones trace SP Grav 1.020 Blood - PH 5.5 Protein - Urobil 0.2 Nitrite - Leukocytes ([facility]/CMC/Centrex) - Laboratory test finding 02/10/2014 TSH 0.21 mIU/L Low 0.50-6.00 21 Free T4 1.40 ng/dL 0.75-1.54 Complete Blood Count 02/10/2014 WBC 6.4 x10^3/UL 3.6-9.6 RBC 4.51 x10^6/UL 3.90-5.70 HGB 14.2 g/dL 12.1-17.2 HCT 41 % 36-50 MCV 92.0 fL 82.2-97.4 MCH 31.5 pg 27.6-33.3 MCHC 34.3 g/dL 33.0-35.5 RDW 11.8 % 11.6-13.7 PLT 306 x10^3/UL 150-400 MPV 7.2 fL Low 7.4-10.4 Gran # 4.6 x10^3/UL 1.5-7.2 Lymph# 1.6 x10^3/UL 0.7-4.9 Dickson# 0.2 x10^3/UL 0.1-0.9 Gran % 69.5 % 42.2-75.2 Lymph % 26.0 % 20.5-51.1 Dickson% 4.5 % 1.7-9.3 Comprehensive Metabolic Prof 02/10/2014 Sodium 147 mEq/L 134-149 Potassium 4.7 mEq/L 3.6-5.5 Chloride 96 mEq/L 94-112 Carbon Dioxide 24 mEq/L 21-32 Glucose 100 mg/dL 70-105 BUN 21 mg/dL 6-26 Creatinine 0.8 mg/dL 0.6-1.4 BUN/Creat Ratio 26.3 CALC 8.0-36.0 Calcium 9.9 mg/dL 8.6-10.2 Total Protein 8.0 g/dL 6.3-8.1 Albumin 5.0 g/dL 3.8-5.5 Globulin 3.0 g/dL 2.0-4.8 A/G Ratio 1.7 CALC 0.6-2.3 Alk. Phosphatase 61 U/L 30-110 Alt (SGPT) 26 U/L 7-35 Ast (Sgot) 22 U/L 5-34 Total Bilirubin 0.4 mg/dL 0.2-1.3 Lipid Profile 02/10/2014 Cholesterol 233 mg/dL High 120-200 Triglycerides 83 mg/dL 30-200 HDL Cholesterol 65 mg/dL 30-85 LDL (Calculated) 151 CALC High 0-129 VLDL Cholesterol 17 mg/dL 0-50 HDL Risk Factor 3.6 CALC 0.0-4.4 Laboratory test finding 02/10/2014 Free T3 2.41 pg/mL 2.00-4.90 Ua - Non Micro ([facility]) 02/10/2014 Appearance CLEAR Color YELLOW Glucose, Urine ([facility]/CMC/CTX) NEG Bilirubin NEG Ketones NEG SP Grav 1.020 Blood NEG PH 5.5 Protein NEG Urobil 0.2 Nitrite NEG Leukocytes ([facility]/CMC/Centrex) NEG Comprehensive Metabolic Prof 12/30/2012 Albumin 4.5 g/dL 3.8-5.5 Alk. Phos. 68 U/L 30-110 Alt (SGPT) 20 U/L 7-35 Ast (Sgot) 21 U/L 5-34 BUN 20 mg/dL 6-26 Calcium 10.2 mg/dL 8.6-10.2 Chloride 103 mEq/L 94-112 Creatinine 0.9 mg/dL 0.6-1.4 Carbon Dioxide 26 mEq/L 21-32 Glucose 105 mg/dL 70-105 Sodium 142 mEq/L 134-149 Total Bilirubin 0.4 mg/dL 0.2-1.3 Total Protein 6.6 g/dL 6.3-8.1 Potassium 4.4 mEq/L 3.6-5.5 Globulin 2.1 g/dL 2.0-4.8 A/G Ratio 2.2 Calc 0.6-2.3 BUN/Creat Ratio 22.0 Calc 8.0-36.0 CBC Electronic ([facility]) 12/30/2012 WBC 6.5 3.6-9.6 RBC 4.44 3.90-5.70 Hemoglobin ([facility]/CMC/CTX) 13.6 g/dL 12.1 - 17.2 Hematocrit ([facility]ma/CMC/CTX) 40.6 % 36.1 - 50.3 Platelets 281 10^3/ul 150-400 Lymph% 19.9 Low 20.5-51.1 Mixed% 4.0 Neutrophils % 76.1 Mean Corpuscular Vol 91 82.2-97.4 Mean Corpuscular Hemoglobin 30.7 27.6-33.3 Mean Corpuscular Hemo Concen 33.6 32.0-36.0 RDW 12.2 11.6-13.7 Mean Platelet Volume 6.5 6.5-11.0 Laboratory test finding 12/30/2012 Vitamin D, 25 Oh 34.8 ng/mL 30.0- 100.0 22 Lipid Profile 12/30/2012 Cholesterol 203 mg/dL High 120-200 HDL 71 mg/dL 30-85 Triglycerides 63 mg/dL 30-200 HDL Risk Factor 2.9 CALC 0.0-4.4 LDL (Calculated) 119 CALC 0-129 VLDL (Calculated) 13 mg/dL 0-50 Laboratory test finding 12/30/2012 TSH 0.26 mIU/L Low 0.50-6.00 23 Free T4 1.39 ng/dL 0.75-1.54 Ua - Non Micro ([facility]) 12/28/2012 Appearance CLEAR Color YELLOW Glucose, Urine (a/CMC/CTX) NEG Bilirubin NEG Ketones NEG SP Grav >=1.030 Blood NEG PH 5.5 Protein NEG Urobil 0.2 Nitrite NEG Leukocytes (a/CMC/Centrex) NEG Lipid Profile 10/17/2011 Cholesterol 211 mg/dL High 120-200 HDL 58 mg/dL 30-85 Triglycerides 79 mg/dL 30-200 HDL Risk Factor 3.6 CALC 0.0-4.0 LDL (Calculated) 137 CALC High 0-129 VLDL (Calculated) 16 mg/dL 0-50 Laboratory test finding 10/17/2011 TSH 1.24 mIU/L 0.50-6.00 CBC Electronic ([facility]) 11/15/2010 WBC 5.6 3.6-9.6 RBC 4.56 3.90-5.70 Hemoglobin ([facility]ma/CMC/CTX) 14.1 g/dL 12.1 - 17.2 Hematocrit ([facility]/CMC/CTX) 41.1 % 36.1 - 50.3 Platelets 310 10^3/ul 150-400 Lymph% 25.4 20.5-51.1 Mixed% 6.0 Neutrophils % 68.6 Mean Corpuscular Vol 90 82.2-97.4 Mean Corpuscular Hemoglobin 31.0 27.6-33.3 Mean Corpuscular Hemo Concen 34.4 32.0-36.0 RDW 12.6 11.6-13.7 Mean Platelet Volume 7.3 6.5-11.0 Laboratory test finding 11/15/2010 TSH 0.92 mIU/L 0.50-6.00 Free T4 1.28 ng/dL 0.75-1.54 Comprehensive Metabolic Prof 11/15/2010 Albumin 4.8 g/dL 3.8-5.5 Alk. Phos. 63 U/L 30-110 Alt (SGPT) 17 U/L 7-35 Ast (Sgot) 17 U/L 5-34 BUN 23 mg/dL 6-26 Calcium 9.7 mg/dL 8.6-10.2 Chloride 104 mEq/L 94-112 Creatinine 0.9 mg/dL 0.6-1.4 Carbon Dioxide 21 mEq/L 21-32 Glucose 104 mg/dL 70-105 Sodium 142 mEq/L 134-149 Total Bilirubin 0.6 mg/dL 0.2-1.3 Total Protein 7.0 g/dL 6.3-8.1 Potassium 4.2 mEq/L 3.6-5.5 Globulin 2.3 g/dL 2.0-4.8 A/G Ratio 2.1 Calc 0.6-2.2 BUN/Creat Ratio 26.0 Calc 8.0-36.0 Lipid Profile 11/15/2010 Cholesterol 216 mg/dL High 120-200 HDL 69 mg/dL 30-85 Triglycerides 78 mg/dL 30-200 HDL Risk Factor 3.1 CALC 0.0-4.0 LDL (Calculated) 132 CALC High 0-129 VLDL (Calculated) 16 mg/dL 0-50 Laboratory test finding 11/15/2010 Rheumatoid Arth Factor 8.1 IU/mL 0.0- 13.9 Lyme Igg/M W/RFX West 11/15/2010 Lyme IgG/IgM Ab <0.91 index 0.00-0.90 24 Lyme Disease Ab, Quant, IgM <0.91 index 0.00-0.90 25 Ua - Non Micro (a) 11/11/2010 Appearance CLEAR Color YELLOW Glucose, Urine (a/CMC/CTX) - Bilirubin - Ketones - SP Grav 1.030 Blood - PH 5.5 Protein - Urobil 0.2 Nitrite - Leukocytes (a/CMC/Centrex) - Lipid Profile 10/03/2009 Cholesterol 200 mg/dL 120-200 HDL 68 mg/dL 30-85 Triglycerides 79 mg/dL 30-200 HDL Risk Factor 3.0 CALC Low 4.2-7.0 LDL (Calculated) 117 CALC 0-129 VLDL (Calculated) 16 mg/dL 0-50 CBC ([facility]) 10/03/2009 WBC 5.3 3.6-9.6 RBC 4.80 3.90-5.70 Hemoglobin (Fma/CMC/CTX) 14.3 g/dL 12.1 - 17.2 Hematocrit (a/CMC/CTX) 44.1 % 36.1 - 50.3 Mean Corpuscular Vol 91.9 82.2-97.4 Mean Corpuscular Hemaglobin 29.8 27.6-33.3 Mean Corpuscular Hemo Concen 32.4 Low 33.0-36.0 Platelets 289 10^3/ul 150-400 Lymph% 29.4 20.5-51.1 Mixed% 8.8 Neutrophils % 61.8 RDW 13.7 11.6-13.7 Mean Platelet Volume 9.2 7.4-10.4 Laboratory test finding 10/03/2009 Rheumatoid Arth Factor 6.2 IU/mL 0.0- 13.9 Antinuclear Abs, Ifa Negative 26 Laboratory test finding 10/03/2009 TSH 0.38 mIU/L Low 0.50-6.00 27 Free T4 1.36 ng/dL 0.75-1.54 Comprehensive Metabolic Prof 10/03/2009 Albumin 4.4 g/dL 3.8-5.5 Alk. Phos. 58 U/L 30-110 Alt (SGPT) 20 U/L 7-35 Ast (Sgot) 18 U/L 5-34 BUN 22 mg/dL 6-26 Calcium 9.2 mg/dL 8.6-10.2 Chloride 99 mEq/L 94-112 Creatinine 0.8 mg/dL 0.6-1.4 Carbon Dioxide 25 mEq/L 21-32 Glucose 93 mg/dL 70-105 Sodium 142 mEq/L 134-149 Total Bilirubin 0.4 mg/dL 0.2-1.3 Total Protein 6.5 g/dL 6.3-8.1 Potassium 4.3 mEq/L 3.6-5.5 Globulin 2.1 g/dL 2.0-4.8 A/G Ratio 2.1 Calc 0.6-2.2 BUN/Creat Ratio 26.6 Calc 8.0-36.0 Ua - Non Micro (a) 09/11/2009 Appearance CLEAR Color YELLOW Glucose, Urine (Fma/CMC/CTX) NEG Bilirubin NEG Ketones NEG SP Grav 1.025 Blood NEG PH 5.5 Protein NEG Urobil 0.2 Nitrite NEG Leukocytes (Fma/CMC/Centrex) NEG Laboratory test finding 12/18/2005 Stool Card Fobt-Ict#1 NEGATIVE (New)Fma Stool Card Fobt-Ict#2(New)Fma NEGATIVE 12/03/05 Stool Car Fobt-Ict #3([facility])New NEGATIVE 12/04/05 Laboratory test finding 11/20/2005 Tick Identification SEE IMAGE Comp Metabolic (a) 10/30/2005 Glucose, Serum (Fma/CMC/CTX) 91 mg/dL 70- 105 Female BUN (Fma/CMC/Centrex) 17 mg/dL 6-26 Creatinine, Serum 1.0 mg/dL 0.6-1.4 BUN/Creatinin Ratio 16.8 8.0-36 Sodium 142 134-149 Potassium 4.5 3.6-5.5 Chloride 99 mEq/L 94-112 Co2 28 21-32 Calcium (Fma/CMC/Centrex) 9.5 mg/dL 8.6-10.2 Total Protein 6.7 g/dL 6.3-8.1 Albumin (Fma/CMCC/Centrex) 4.3 3.8-5.5 Globulin 2.5 2.0-4.8 A/G Ratio (A/G Ratio) 1.7 0.6-2.2 Alkaline Phosphatase (F/C/CTX) 59 U/L 30-110 Alt (SGPT) Female (a) 15 7-35 Ast Sgot 19 U/L 5-34 Bilirubin, Total 0.5 mg/dL 0.2-1.3 Lipid Profile ([facility]) 10/30/2005 Cholesterol ([facility]rex) 205 mg/dL High 120-200 Female Triglyceride 94 mg/dL 30-200 HDL-Chol 56 mg/dL 30-85 LDL, Calculated ([facility]) 130 CALC High 0-129 LDL Direct ([facility]/Centrex) - mg/dL 0-130 VLDL 19 0-50 HDL Risk Factor ([facility]) 3.6 CALC Low 4.2-7.0 Laboratory test finding 10/30/2005 TSH ([facility]) 0.47 uIU/ml Low 0.5-6.0 28 Free T4 ([facility]rex) 1.51 ng/dL 0.75-1.54 CBC Electronic ([facility]) 10/30/2005 WBC 6.5 3.6-9.6 Lymphocytes 22.3 % 20.5 - 51.1 Monocytes 8.5 % 1.7-9.3 Granulocytes 69.2 % 42.2 - 75.2 Lymphocytes 1.4 10^3/uL 0.7 - 4.9 Monocytes 0.6 10^3/uL 0.1 - 0.9 Granulocytes 4.5 10^3/uL 1.5 - 7.2 RBC 4.87 3.90-5.70 Hemoglobin (a/CMC/CTX) 14.4 g/dL 12.1 - 17.2 Hematocrit (a/[facility]/CTX) 42.5 % 36.1 - 50.3 Mean Corpuscular Vol 87.4 82.2-97.4 Mean Corpuscular Hemaglobin 29.7 27.6-33.3 Mean Corpuscular Hemo Concen 34.0 33.0-36.0 RDW 13.1 11.6-13.7 Platelets 338. 10^3/ul 150-400 Mean Platelet Volume 7.5 7.4-10.4 Laboratory test finding 10/30/2005 Sed Rate (Fma/CMC/Centrex) 5 MM Hemoglobin A1c (Fma/CMC/CTX) 4.9 % 4.1-5.7 Ua - Non Micro ([facility]) 10/30/2005 Appearance CLEAR Color LT YELLOW Glucose NEG Bilirubin NEG Ketones NEG SP Grav 1.010 Blood NEG PH 6.5 Protein NEG Urobil 0.2 Nitrite NEG Leukocytes NEG Laboratory test finding 10/30/2005 FSH 14.5 mIU/ml 29, 30 Antinuclear AB (Monica) NEGATIVE Negative 29, 31 Anti Dna (SS) Igg, AB 10/30/2005 Anti-Dna(SS)IgG, Ab, Qn 28 EU High 0-19 29, 32 CBC Electronic ([facility]) 12/17/2004 WBC 6.8 3.6-9.6 Lymphocytes 28.5 % 20.5 - 51.1 Monocytes 2.3 % 1.7-9.3 Granulocytes 69.2 % 42.2 - 75.2 Lymphocytes 1.9 10^3/uL 0.7 - 4.9 Monocytes 0.2 10^3/uL 0.1 - 0.9 Granulocytes 4.7 10^3/uL 1.5 - 7.2 RBC 4.42 3.90-5.70 Hemoglobin (Fma/CMC/CTX) 12.3 g/dL 12.1 - 17.2 Hematocrit (Fma/CMC/CTX) 36.9 % 36.1 - 50.3 Mean Corpuscular Vol 83.7 82.2-97.4 Mean Corpuscular Hemaglobin 27.8 27.6-33.3 Mean Corpuscular Hemo Concen 33.2 33.0-36.0 RDW 14.3 High 11.6-13.7 Platelets 353. 10^3/ul 150-400 Mean Platelet Volume 6.7 Low 7.4-10.4 Comp Metabolic ([facility]) 12/17/2004 Glucose, Serum (a/CMC/CTX) 96 mg/dL 70- 105 Female BUN (a/CMC/Centrex) 21 mg/dL 6-26 Creatinine, Serum 0.9 mg/dL 0.6-1.4 BUN/Creatinin Ratio 23.5 8.0-36 Sodium 142 134-149 Potassium 4.2 3.6-5.5 Chloride 102 mEq/L 94-112 Co2 27 21-32 Calcium ([facility]rex) 9.3 mg/dL 8.6-10.2 Total Protein 6.5 g/dL 6.3-8.1 Albumin ([facility]rex) 4.1 3.8-5.5 Globulin 2.4 2.0-4.8 A/G Ratio (A/G Ratio) 1.7 0.6-2.2 Alkaline Phosphatase (F/C/CTX) 49 U/L 22-95 Alt (SGPT) ([facility]) 18 7-35 Ast (Sgot) ([facility]) 23 U/mL 5-34 Bilirubin, Total 0.4 mg/dL 0.2-1.3 Lipid Profile ([facility]) Female 12/17/2004 Cholesterol 213 mg/dL High 120-200 Triglyceride 89 mg/dL 30-200 HDL-Chol 67 mg/dL 30-85 LDL, Calculated ([facility]) 129 CALC 0-129 LDL, Direct - mg/dL 0-130 VLDL 18 0-50 HDL Risk Factor ([facility]) 3.2 CALC Low 4.2-7.0 Free T4/TSH 12/17/2004 TSH ([facility]) 0.12 RESULT Low 0.5-6.0 ([facility]) ABBY'D uIU/ml Free T4 1.36 ng/dL 0.75-1.54 Ua - Non Micro ([facility] New) 12/17/2004 Appearance CLEAR Color LIGHT YELLOW Glucose NEGATIVE Bilirubin NEGATIVE Ketones NEGATIVE SP Grav >=1.030 Blood NEGATIVE PH 5.0 Protein NEGATIVE Urobil 0.2 Nitrite NEGATIVE Leukocytes NEGATIVE Laboratory test finding 12/17/2004 Rheumatoid Factor (RF) <11.0 IU/mL 0.0 -20.0 Antinuclear AB ([facility]) POSITIVE Negative C-Reactive Protein 0.6 mg/dL High 0.0-0.5 Protein Electro, Serum 12/17/2004 Protein, Total 6.3 g/dL Low 6.4-8.2 Protein, Total 6.3 g/dL Low 6.4-8.2 Albumin 3.9 3.2-5.6 Alpha 1 Globulin, Serum 0.2 g/dL 0.1-0.4 Alpha 2 Globulin, Serum 0.8 g/dL 0.4-1.2 Beta Globulin, Serum 0.7 g/dL 0.6-1.3 Gamma Globulin 0.6 g/dL 0.5-1.6 Globulin,Total 2.3 g/dL 2.0-4.5 A/G Ratio 1.7 0.7-2.0 Interpretation, Serum * 33 Laboratory test finding 12/17/2004 Titer, Monica TITER=1:40 34 Free T4/TSH 05/29/2004 TSH ([facility]) 1.35 uIU/ml 0.5-6.0 ([facility]) Free T4 1.62 RESULTS ABBY'D ng/dL High 0.75-1.54 Lipid Profile ([facility]) 03/03/2003 Cholesterol 207 mg/dL High 120-200 Triglyceride 172 mg/dL 30-200 HDL-Chol 81 30-85 LDL-Calculated ([facility]) 92 CALC 0-129 VLDL 34 0-50 HDL Risk Factor ([facility]) 2.6 CALC Low 4.2-7.0 Free T4/TSH ([facility]) 03/03/2003 TSH 3.46 uIU/ml 0.5-6.0 Free T4 1.42 ng/dL 0.75-1.54 Ua - Non Micro ([facility]) 12/20/2001 Appearance CLEAR YELLOW Glucose NEGATIVE Bilirubin NEGATIVE Ketones NEGATIVE SP Grav >=1.030 Blood NEGATIVE PH 5.0 Protein NEGATIVE Urobil 0.2 Nitrite NEGATIVE Leukocytes NEGATIVE CBC With Diff ([facility]) 12/20/2001 WBC .5.6 Low 3.6-9.6 Lymphocytes 24.0 % 20.5 - 51.1 Monocytes 7.1 % 1.7-9.3 Granulocytes 68.9 % 42.2 - 75.2 Lymphocytes 1.3 10^3/uL 0.7 - 4.9 Monocytes 0.4 10^3/uL 0.1 - 0.9 Granulocytes 3.9 10^3/uL 1.5 - 7.2 RBC 4.50 3.90-5.70 Hemoglobin 12.3 g/dL 12.1 - 17.2 Hematocrit 35.8 % Low 36.1 - 50.3 Mean Corpuscular Vol 79.7 Low 82.2-97.4 Mean Corpuscular Hemaglobin 27.3 Low 27.6-33.3 Mean Corpuscular Hemo Concen 34.3 33.0-34.8 RDW 15.1 High 11.6-13.7 Platelets 320. 10^3/ul 150-400 Mean Platelet Volume 7.1 Low 7.4-10.4 Laboratory test finding 11/12/2001 Anti Dna (DS) 0.25 Index 0 - 0.9 35 Laboratory test finding 11/04/2001 Anti-Dna: DS <pending> Free T4/TSH Profile (Fma) 10/24/2001 Free T4 1.35 ng/dL 0.7-1.55 TSH 1.73 0.4-4.2 Laboratory test finding 10/14/2001 C-Reactive Protein <0.3 mg/dL 0 - 0.5 Rheumatoid Factor (RF) <11.0 IU/mL 0 - 20 Antinuclear AB ([facility]) 10/14/2001 Final Monica Report POSITIVE Negative Titer SPECKLED PATTERN Low 1:160 Lipid Profile (Fma) 09/25/2000 Cholesterol 173 mg/dL 140-200 Triglyceride 78 mg/dL 30-150 VLDL 16 0-50 LDL-Calculated 93 0-160 HDL-Chol 64 35-85 Free T4/TSH Profile (Fma) 09/25/2000 Free T4 1.25 ng/dL 0.7-1.55 TSH 1.40 0.4-4.2 Laboratory test finding 11/19/1999 Free T4 12.87 pg/mL 7.0-15.5 TSH 0.69 uIU/ML 0.4-4.2 Laboratory test finding 08/12/1999 Free T4 15.49 TSH 0.08 uIU/ML Low 0.3 - 4.5 Laboratory test finding 07/30/1999 TSH 0.1 MIU/ML Low 0.3-4.5 Laboratory test finding 02/14/1999 H. Pylori Igg NONE DETECTED None Detected Rubeola Virus Igg AB (Measles) IMMUNE Immune Thyroxine, Total (T4) 7.38 g/dL 5-12 TSH 1.96 MIU/ML 0.3-4.5 1 SEE RESULT BELOW Name: BEBA POP : [address]: Cleopatra Hagen MD Acct: [id number] Unit: [id number] AGE: 56 Location: [facility] Re09/09/17 SEX: F Status: REG REF SPEC: [id number] KAY: 09/09/[address] [facility] [address]: Cleopatra Hagen MD REQ: [id number] RECD: 09/09/17 STATUS: CELIA JIN DR: Brennan Rob MD _ ORDERED: TP IMAGE ANAL, HPV/Thin Prep COMMENTS: [id number] Negative for Intraepithelial lesion or Malignancy A. Ectocervical/Endocervical Specimen Adequacy: Satisfactory of evaluation Transformation zone component not identified Patient Information: HPV: High risk HPV RNA testing regardless of pap results. Actual Specimen Date: 09/09/17 Last Menstrual Date: 06/22/08 Date of Last Specimen: 06/30/16 ?: N Post Menopausal?: Y Hysterectomy?: N Date Time Test Result Flag (u) Normal Range 09/09/17 0933 @ HPV RNA Negative Negative @ @ The high-risk HPV types detected by the assay include: 16, @ 18, 31, 33, 35, 39, 45, 51, 52, 56, 58, 59, 66, and 68. Signed (signature on file) AMY Moncada(ASCP) 09/11 1017 This Pap test was evaluated with the assistance of the [employer] Test Imaging System. Due to cytologic findings at the sharepoint designer developer microscope, comprehensive manual rescreening by a Lithographic Plate Maker may be required. The Pap Smear is a screening test designed to aid in the detection of premalignant and malignant conditions of the uterine cervix. It is not a diagnostic procedure and should not be used as the sole means of detecting cervical cancer. Both false- positive and false- negative reports do occur. Depending on your risk status, a Pap smear should be obtained and evaluated every 1-3 years. END OF REPORT DEPARTMENT OF PATHOLOGY, [address] [place] [address] Da Smith M.D. Director [facility] # [id number] 2 Test Performed by: [facility] - [address] [address] 3 <1:80 (Negative) REFERENCE VALUE <1:80 (Negative) Test Performed by: [facility] - [address] [address] 4 No bands detected 5 Specific serologic response to B. burgdorferi infection is not detected, but cannot rule out early infection during which low or undetectable antibody levels to B. burgdorferi may be present. If clinically indicated, a new serum specimen should be submitted in 7-14 days. ADDITIONAL INFORMATION CDC criteria require >=5 bands for IgG or >=2 bands for IgM for the Immunoblot to be considered positive. Bands (e.g.,p41) may be detected in patients without Lyme disease, and patterns not meeting the CDC criteria should be interpreted with caution. Immunoblot should be ordered only on specimens that are positive or equivocal by a FDA-licensed Lyme disease antibody screening test (e.g., EIA). Test Performed by: [facility] - [facility] [address] [place] [address] 6 Acute inflammation: >10.00 7 RESULT: No apparent monoclonal protein on serum electrophoresis. Test Performed by: [facility] - [address] [address] 8 RESULTS VERIFIED BY REPEAT ANALYSIS 9 SEE RESULT BELOW Name: BEBA POP : [address]: Pranay Mcdermott MD Acct: [id number] Unit: [id number] AGE: 56 Location[facility] Re12/04/16 SEX: F Status: DEP REF SPEC: [id number] KAY: 12/04/[address] [facility] [address]: Pranay Mcdermott MD REQ: [id number] RECD: 12/04/168 STATUS: CELIA JIN DR: Brennan Rob MD _ ORDERED: LEVEL 4/2, IMMUNO-FIRST Addendum: An immunohistochemical stain for Helicobacter pylori-like organisms was performed with appropriate controls and is negative. Addendum Signed (signature on file) Da Smith MD 1529 FINAL DIAGNOSIS 1. Stomach, antrum, biopsy: -- Antral-type gastric mucosa with mild chronic gastritis and reactive chemical gastropathy; see comment. 2. Gastroesophageal junction, biopsy: -- Squamous and columnar mucosa with chronic inflammation. -- Intestinal metaplasia is absent. -- Dysplasia is absent. COMMENT: An H. pylori immunostain is pending for specimen 1 and the results will be reported in an addendum. CLINICAL HISTORY No history given POST-OPERATIVE DIAGNOSIS Esophagus - no mass, small hiatal hernia; no Chatterjee's esophagus; biopsied; stomach - gastritis, erosions - biopsied; duodenum - normal. Follow-up biopsy CONTINUED ON NEXT PAGE * ML=Testing performed at Main Lab DEPARTMENT OF PATHOLOGY, [address] [place] [address] Da Smith M.D. Director [facility] # [id number] RUN DATE: 12/08/16 [facility] LAB LIVE PAGE 2 Patient: BEBA POP [id number] (Continued) GROSS DESCRIPTION (Continued) GROSS DESCRIPTION 1. The specimen is received in formalin labeled, Biopsy Gastric Antrum, and consists of two afrris-pink irregular soft tissue fragments measuring 0.3 x 0.1 x 0.1 cm and 0.5 x 0.3 x 0.2 cm which are submitted entirely in one cassette. 2. The specimen is received in formalin labeled, Biopsy GE [place], and consists of a 0.5 x 0.3 x 0.1 cm farris-pink irregular soft tissue fragment which is submitted entirely in one cassette. Signed (signature on file) Georgia Brown MD 1223 END OF REPORT * ML=Testing performed at Main Lab DEPARTMENT OF PATHOLOGY, [address] [place] [address] Da Smith M.D. Director [facility] # [id number] 10 SEE RESULT BELOW Name: BEBA POP : [address]: Pranay Mcdermott MD Acct: [id number] Unit: [id number] AGE: 56 Location: ENDO Re12/04/16 SEX: F Status: REG REF SPEC: [id number] KAY: 12/04/[address] [facility] [address]: Pranay Mcdermott MD REQ: [id number] RECD: 12/04/16 STATUS: RAMIN JIN DR: Brennan Rob MD _ SOURCE: GAS ANTRUM SPDESC: ORDERED: Clotest Procedure Result Reported Site Clotest Final 12/05/16- 07 ML Clotest Negative * ML - MAIN LAB ([facility]) . END OF REPORT * ML=Testing performed at Main Lab DEPARTMENT OF PATHOLOGY, [address] [place] [address] Da Smith M.D. Director [facility] # [id number] 11 SEE RESULT BELOW Name: COLLEENBEBA : [address]: Elizabeth Coffman MD Acct: [id number] Unit: [id number] AGE: 56 Location: [facility] Re10/24/16 SEX: F Status: REG REF SPEC: [id number] KAY: 10/24/16-[address]: Elizabeth Coffman MD REQ: [id number] RECD: 10/24/16 STATUS: COMP OTHR DR: Brennan Shallish MD _ SOURCE: URINE SPDESC: ORDERED: Urine Culture QUERIES: Urine Source: Clean Catch Procedure Result Reported Site Urine Culture Final 10/25/16- 1215 ML No Growth (<1,000 CFU/mL) * ML - MAIN LAB ([facility]) . END OF REPORT * ML=Testing performed at Main Lab DEPARTMENT OF PATHOLOGY, [address] [place] [address] Da Smith M.D. Director [facility] # [id number] 12 Because ethnic data is not always readily [...] 15-29 5 Kidney failure <15 (or dialysis) 13 C. Difficile toxin testing is not performed on formed stool specimens. Test of cure on positive 14 SOURCE: STOOL PARASITIC EXAMINATION FINAL No parasites seen. Cryptosporidium, Cyclospora, and microsporidia are not readily detected by this method. Single negative specimen does not rule out parasitic infection. Test Performed by: [place] [address] Hat Blocking Machine Operator: Harish Roche II, M.D., Ph.D. 15 SEE RESULT BELOW Name: BEBA POP : [address]: Brennan Rob MD Acct: [id number] Unit: [id number] AGE: 55 Location: [facility] Re06/17/16 SEX: F Status: REG REF SPEC: [id number] KAY: 06/17/[address]: Brennan Rob MD REQ: [id number] RECD: 06/17/16 STATUS: COMP _ SOURCE: STOOL SPDESC: ORDERED: C. diff PCR/S, Stool Culture/R, O P: Giar/Crypt/R COMMENTS: C. Difficile toxin testing is not performed on formed stool specimens. Test of cure on positive patients is not recommended. Verbal to ERNESTINA PALM by [id number] at 1311 on 06/17/16. Procedure Result Reported Site Stool Culture Final 06/19/16- 1123 ML Result No enteric pathogens isolated Testing for Salmonella, Shigella, Aeromonas, Plesiomonas, Yersinia and Campylobacter are included in a Stool Culture. Vibrio spp not routinely tested for in a stool culture. If testing is desired, please request specifically when placing test order. Sensitivities not routinely performed on stool isolates, as antibiotics may prolong the carriage rate of bacteria. Please contact the microbiology lab if sensitivities are required. Stool Specimen Description Final 06/17/16- 1200 ML Stool Color Brown Stool Form Formed Stool Consistency Soft Shiga Toxin 1 2 Final 06/18/16- 0906 ML Organism 1 Negative Shiga Toxin 1 2 CONTINUED ON NEXT PAGE * ML=Testing performed at Main Lab DEPARTMENT OF PATHOLOGY, [address] [place] [address] Da Smith M.D. Director [facility] # [id number] Patient: BEBA POP [id number] (Continued) Specimen: [id number] Collected: 06/17/16 Received: 06/17/16 (Continued) Procedure Result Reported Site Shiga Toxin 1 2 Final (continued) 06/18/16- 905 Immunochromatographic Assay C. difficile PCR Final 06/17/16- 1200 ML Test not performed O P: Giardia/Cryptospor Screen Final 06/18/16- 59 ML Organism 1 Neg Cryptosporidium/Giardia Giardia and cryptosporidium antigen testing performed by enzyme immunoassay. If patient is immunocompromised or has traveled to or is from a developing country, a full ova and parasite exam with microscopic (OPMIC) is recommended. All samples will be held one month in case full ova and parasite testing is requested. Contact the Microbiology Department at [phone]. TEST LIMITATIONS: As with all diagnostic procedures, the results obtained should be used in conjunction with other clinical information available the physician, including confirmation by another method. Negative results can occur in samples containing antigen below lower limits of detection of the assay. One negative specimen does not rule out the possibility of a parasitic infection. To improve detection it is recommended that three specimens be collected on separate days over a period of not more than seven days. The use of colonic washes, aspirates or other diluted sample types has not been established and could affect the performance of the assay. Stool samples contaminated with an oily or particulate base (eg. Barium, mineral oil etc.) could interfere with the test and are not recommended. * ML - [facility] ([facility]) . END OF REPORT * ML=Testing performed at Main Lab DEPARTMENT OF PATHOLOGY, [address] [place] [address] Da Smith M.D. Director [facility] # [id number] 16 Acute inflammation: >10.00 17 NON-FASTING 18 REFERENCE VALUE <4.0 (Negative) Test Performed by: [place] [address] Hat Blocking Machine Operator: Harish Roche II, M.D., Ph.D. 19 Negative serology. Celiac disease unlikely. However, approximately 10% of patients with celiac disease are seronegative. Also, patients who are already adhering to a gluten-free diet may be seronegative. If celiac disease is highly clinically suspected, consider HLA-DQ typing. Test Performed by: [place] [address] Hat Blocking Machine Operator: Harish Roche II, M.D., Ph.D. 20 RESULTS VERIFIED BY REPEAT ANALYSIS 21 RESULTS VERIFIED BY REPEAT ANALYSIS 22 Vitamin D deficiency has been defined by the [place] [employer] and an Endocrine Society practice guideline as a level of serum 25-OH vitamin D less than 20 ng/mL (1,2). The Endocrine Society went on to further define vitamin D insufficiency as a level between 21 and 29 ng/mL (2). 1. IOM ([place] [employer]). 2010. Dietary reference intakes for calcium and D. [place]: The National [employer]. 2. Rachele MF, Sabrina JACKSON, Jackie SOLORIO, et al. Evaluation, treatment, and prevention of vitamin D deficiency: an Endocrine Society clinical practice guideline. JCEM. 2010; 96(7):1911-30. 23 RESULT ABBY'D 24 Negative <0.91 Equivocal 0.91 - 1.09 Positive >1.09 Note: The CDC currently advises that Western blot testing be performed following all equivocal or positive EIA results. Final diagnosis should include appropriate clinical findings and a positive EIA which is also positive by Western blot. 25 Negative <0.91 Equivocal 0.91 - 1.09 Positive >1.09 . Note: IgM levels may peak at 3-6 weeks post infection, then gradually decline. FDA currently advises that Western Blot testing be performed following all equivocal or positive EIA results. Final diagnosis should include appropriate clinical findings and a positive EIA which is also positive by Western Blot. 26 Negative <1:80 Borderline 1:80 Positive >1:80 27 result abby'd 28 RESULT VERIFIED BY REPEAT ANALYSIS 29 FASTING; 1 SST TUBE 30 . Normally Menstruating Females: Follicular Phase: 2.5-10.2 Mid-Cycle Peak : 3.4-33.4 Luteal Phase : 1.5-9.1 ..............: <0.3 Postmenopausal........: 23.0-116.3 Males.................: 1.4-18.1 . 31 (Performed by Enzyme Immunoassay, EIA) 32 Negative: <20 Borderline: 20 - 25 Positive: >25 33 Normal serum protein electrophoresis pattern. Reviewed by Dr. Casey Calzada D.O. 34 SPECKLED PATTERN 35 < .90 Neg (No Immunity) .91- 1.09 Equivocal >=1.10 Positive . Procedures Date CPT Code Description Status Comment 01/20/2017 Mammogram Completed done in [facility] 09/30/2016 37305 Electrocardiogram Complete Completed 03/11/2016 Colonoscopy Completed 10/30/2015 53579 Electrocardiogram Complete Completed 01/22/2015 Mammogram Completed 04/26/2014 38888 Pulse Oximetry Completed 12/28/2012 58039 Electrocardiogram Complete Completed 04/09/2011 18404 Pulse Oximetry Completed 12/03/2010 Colonoscopy Completed 11/11/2010 98061 Electrocardiogram Complete Completed 09/11/2009 39576 Electrocardiogram Complete Completed 06/22/2001 Bone Mineral Density Test Completed normal 09/21/2000 61550 Electrocardiogram Complete Completed Encounters Type Date Location Provider CPT E/M Dx Office Visit 07/07/2017 1:00p Main Office Brennan Rob M.D. 03380 E03.9 K90.0 M15.0 I34.0 R23.8 Z00.00 Office Visit 09/30/2016 10:40a Main Office Brennan Rob M.D. 74702 M17.12 E03.9 H65.01 G43.109 R19.7 Z01.818 Office Visit 06/12/2016 8:20a Main Office Brennan Rob M.D. 88041 E03.9 R19.7 Office Visit 10/30/2015 7:20p Main Office Brennan Rob M.D. 13322 E03.9 Z01.818 R23.8 M25.562 M25.462 M17.12 Office Visit 06/08/2015 1:00p [facility] Brennan Rob M.D. 30827 E03.9 Z00.00 K14.6 R01.1 Office Visit 03/22/2015 9:45a [place] [address] Z48.02 S61.215S R68.84 Office Visit 06/02/2014 10:20a [facility] Office Brennan Rob M.D. 93939 244.9 719.46 V72.83 Office Visit 04/26/2014 9:30a [facility] Ana Lilia Joseph 14722 466.0 Office Visit 02/10/2014 9:00a [facility] Brennan Rob M.D. 41201 244.9 784.0 995.3 327.23 V70.0 Office Visit 01/03/2013 9:00a [facility] Georgia Rodas, [facility] 00252 782.9 Office Visit 12/28/2012 1:00p Main Office Brennan Rob M.D. 00719 244.9 786.50 784.0 995.3 V70.0 V06.5 Office Visit 03/16/2012 9:30a [facility] Karen FinleyYeison-Rian 85222 466.0 Office Visit 10/06/2011 2:10p [facility] Radha Barrera M.D. 57407 461.8 Office Visit 04/09/2011 9:40a [facility] Aman Mena M.D. 32363 465.9 Office Visit 01/13/2011 2:10p Main Office Logan Owusu M.D. 04389 681.02 Office Visit 11/11/2010 2:40p [facility] Brennan Rob M.D. 27054 784.0 244.9 719.46 386.11 V70.0 995.3 Office Visit 05/08/2010 11:20a [facility] Tony Nam M.D. 16525 782.1 Office Visit 09/11/2009 2:00p Main Office Brennan Rob M.D. 69774 244.9 719.49 784.0 569.49 V70.0 V76.41 995.3 Office Visit 02/04/2006 6:10p Main Office Georgia Ledbetter M.D. 81163 616.10 Office Visit 11/20/2005 11:15a Main Office Rylee JonYeison-Rian 25960 E906.3 916.4 Office Visit 10/30/2005 9:30a Main Office Brennan Rob M.D. 20074 783.1 244.9 719.49 V77.1 401.9 V77.91 Office Visit 12/17/2004 9:00a Main Office Brennan Rob M.D. 29588 401.9 786.50 719.49 244.9 784.0 Office Visit 11/12/2004 11:10a Main Office Georgia Ledbetter M.D. 67891 786.50 401.9 Office Visit 05/09/2003 1:30p [facility] Karen FinleyYeisonRian 45628 490 Office Visit 03/03/2003 9:00a Main Office Brennan Rob M.D. 92267 244.9 Office Visit 10/14/2001 11:20a Main Office Brennan Rob M.D. 75916 Office Visit 09/21/2000 2:00p Main Office Brennan Rob M.D. 22970 Office Visit 04/08/2000 12:00p Main Office Brennan Rob M.D. 95149 Plan of Care 12/08/2017 - Brennan Rob M.D.E03.9 Hypothyroidism, unspecifiedComments: continue thyroid medicationFollow up:Followup:. (Follow up)K90.0 Celiac diseaseComments:Continue gluten pgrplzuymB06.0 Primary generalized (osteo) arthritisComments:I feel she is medically cleared for the planned surgical procedure by Dr Coffman EKG shows normal sinus rhythm, first degree AV block, normal tracingAllNew Medication:Amoxicillin/Clavulanate Potassium 875-125 mg
--- OUTSIDE RECORDS SUMMARY | 2017-12-24 06:50 | XMS REPORT ---
:1960 External Reference #:[id number] Author Organization [facility] Address [address] [address] Phone [phone] Care Team Providers Name Role Phone Brennan Rob MD Primary Care Physician Unavailable Payers Type Date Identification Numbers Payment Provider Subscriber Commercial Policy Number: [id number] [employer] Juan David Ally Pop PayID: [id number] [address] [address] [place] [address] Medigap Part B Expires: 2013 Policy Number: [facility] Juan David Donn [id number] PayID: [id number] [address] [address] [place] [address] Problems Date Description Provider Status Onset: 07/11/2015 [...] 1 hour Augustus, before dental M.D. procedure Ibuprofen 10/04 Active Tablets 800mg 60tab Take 1 Tablet s By Mouth Three Augustus, Times Daily M.D. With Food Synthroid 07/22 Active Tablets 137mcg 30tab Take One Tablet s By Mouth Once Cotton, Daily M.D. Relpax Active Unknown Epipen 2-Darek Active Excedrin Active Unknown Migraine Glucosamine Active Estrace Active Cream 0.1mg/GM 1 gm intravaginally once weekly Clobetasol Active Cream 0.05% use on affected Unknown area 2x daily for 2 weeks then 1 week off Coumadin 10/24 Hx Tablets 2mg 90tab take 1-3 tabs s by mouth at 5 Augustus, - at night as M.D. 11/30 directed Colace 10/24 Hx Capsules 100mg 90cap 1 tab by mouth s 2-3 times a day Augustus, - as needed M.D. 11/30 Percocet 02/28 Hx Tablets 5-325mg 90tab 1-2 tablets by s mouth every 4-6 Augustus, - hours as needed M.D. 11/30 for pain Colace 10/21 Hx Capsules 100mg 90cap 1 by mouth up M25.562 Georgia s to 3 times a Bordoni, - day as needed [employer] C[employer]TER 12/15 for constipation. Percocet 10/21 Hx Tablets 5-325mg 30tab 1-2 tablets by M25.562 Georgia /2016 s mouth every 4-6 Bordoni, - hours as needed BI[employer] C[employer]TER 12/15 for pain Aspirin 10/21 Hx Tablets 325mg 20tab one by mouth M25.562 s twice a day for Bordoni, - 10 days to BI[employer] C[employer]TER 12/15 prevent blood clots post operatively [place] 06/19 Hx Tablets 5-325mg 60tab 1-2 tab by s mouth every 4-6 Young, - hours as needed M.D. 09/29 pain Aspirin Hx Unknown / - 08/16 Medications Administered in Office Medication Date Status Form Strength Qnty SIG Indications Ordering Provider Depomedrol Administered Injection Elizabeth 40MG 018 Dione Coffman Depomedrol 04/07/2 Administered Injection Elizabeth 40MG Sangita Coffman M.D. Depomedrol Administered Injection Elizabeth 40MG 017 Dione Coffman Depomedrol Administered Injection Elizabeth 40MG Funmi Coffman M.D. Depomedrol Administered Injection Elizabeth 40MG Funmi Coffman M.D. Depomedrol Administered Injection Jared 40MG Funmi Swan [...] CPT Code Status Date Vaccine Lot # [id number] Given 10/01/2007 Tetanus And Diptheria (Td) For Adult Use Preservative Free Vital Signs Date Vital Result Comment 11/25/2017 Height 67 inches 5'7" Weight 190.00 [...] Color Yellow Urine Appearance Clear Urine Specific [place] 1.020 1.010-1.030 Urine pH 6.0 5-9 Urine [...] (or dialysis) 2 SEE RESULT BELOW Name: DONNBEBA : [address]: Elizabeth Coffman MD Acct: [id number] Unit: [id number] AGE: 56 Location: [facility] Re10/24/16 SEX: F Status: REG REF SPEC: [id number] KAY: 10/24/[address]: Elizabeth Coffman MD REQ: [id number] RECD: 10/24/16 STATUS: [facility] DR: Brennan Rob MD _ SOURCE: URINE SPDESC: ORDERED: Urine Culture QUERIES: Urine Source: Clean Catch Procedure Result Reported Site Urine Culture Final 10/25/16- 1215 ML No Growth (<1,000 CFU/mL) * ML - MAIN LAB (PSC1) . END OF REPORT * ML=Testing performed at Main Lab DEPARTMENT OF PATHOLOGY, [address] [place] [address] Da Smith M.D. Director [facility] # [id number] Procedures Date CPT Code Description Status 08/17/2017 Inject/Drain Joint/Bursa Major Completed 11/01/2016 31764 EKG, Interpretation Only Completed 10/30/2016 34782 TKR Total Knee Replacement Completed 10/30/2016 95496 TKR Total Knee Replacement Completed 09/26/2016 Inject/Drain Joint/Bursa Major Completed 03/19/2016 Inject/Drain Joint/Bursa Major Completed 11/16/201540829 Inject Tendon Sheath Or Ligament Aponeurosis Eg Plantar Completed Fascia 11/01/2015 69085 Arthroscopy,Knee,Meniscectomy Medial Or Lateral Completed 11/01/2015 45302 Arthroscopy,Knee,Meniscectomy Medial Or Lateral Completed 07/25/201589668 Inject/Drain Joint/Bursa Major Completed 07/18/201571644 Inject/Drain Joint/Bursa Major Completed 07/11/201567700 Inject/Drain Joint/Bursa Major Completed 06/29/2015 40850 ECHO Transthoracic, Real-Time 2D With Doppler And Color Completed Flow 11/15/201443726 Inject/Drain Joint/Bursa Major Completed 11/06/2014 Inject/Drain Joint/Bursa Major Completed 10/30/2014 Inject/Drain Joint/Bursa Major Completed 06/29/2014 76949 Arthroscopy,Knee,Meniscectomy Medial Or Lateral Completed 06/29/2014 39255 Arthroscopy,Knee,Meniscectomy Medial Or Lateral Completed 05/22/2014 39605 Xray Knee 3 Views Completed 05/22/2014 29831 Xray Knee 3 Views Completed 07/14/2013 17580 Polysomnography Sleep Staging 4+ Parameters W/Cpap Completed 07/14/2013 02716 Polysomnography Sleep Staging 4+ Parameters W/Cpap Completed 06/30/2013 56982 Polysomnography Sleep Staging 4+ Parameters Completed 08/10/2008 94933 Biopsy Skin Lesion Single Completed 11/19/2004 22592 ECHO/Stress Completed 11/19/2004 43082 Stress Test Completed Encounters Type Date Location Provider CPT E/M Dx Office Visit 08/17/2017 [facility] Coffman M.D. 95803 M17.11 9:45a C.M.A. M25.561 M25.461 [facility] [address] R00.0 [facility]oc[facility] E03.9 Z96.652 Office Visit 11/02/2016 2:07p [facility] Albert Mohamud, 03027 R00.0 [facility]oc,[facility] E03.9 Z96.652 Office Visit 11/01/2016 2:06p [facility] ,[place] [address] R00.0 Hospitalists E03.9 Z96.652 Office Visit 09/26/2016 8:30a [facility] Coff[facility] M.D. 63281 M17.0 C.M.A. Office Visit 02/29/2016 8:15a [facility] Coff[facility] M.D. 91879 M17.0 C.M.A. M25.562 M25.561 M17.12 Office Visit 10/22/2015 9:00a [facility] Coff[facility] M.D. 68396 M25.562 C.M.A. M25.462 M17.12 S83.241D Office Visit 10/17/2015 2:20p [facility] Jared Swan, 12116 M79.672 C.M.A. Dione M72.2 Office Visit 07/06/2015 2:30p [facility] Coff[facility] M.D. 05144 M17.0 C.M.A. Office Visit 2014 2:45p [facility] Coff[facility] M.D. 39710 715.16 C.M.A. Office Visit 05/22/2014 1:00p [facility] Coff[facility] M.D. 18110 836.0 C.M.A. 715.36 Office Visit 08/28/2008 11:00a DO Not Use Maritza Pyle, 70261 461.9 Restaurant Area Director-[facility] N.P. Office Visit 08/10/2008 10:15a DO Not Use Ghada Cisse, 36505 V72.31 Restaurant Area DirectorElvi Parham 272.0 569.49 Office Visit 07/28/2008 8:30a DO Not Use Restaurant Area Director[facility] Maritza Pyle, 17009 709.9 N.P. 719.40 Office Visit 07/14/2008 4:00p DO Not Use Mila Winters M.D., 37231 565.0 Restaurant Area Director-[facility] FACP Office Visit 06/29/2007 9:00a DO Not Use Maritza Pyle, 86814 V72.31 Restaurant Area Director-[facility] N.P. 346.90 244.9 272.0 Office Visit 02/26/2007 11:30a DO Not Use Maritza Varn, 25967 616.10 Restaurant Area Director-[facility]ven N.P. Office Visit 01/21/2007 8:30a DO Not Use Maritza Varn, 28396 627.2 Restaurant Area Director-[facility]ven N.P. 244.9 627.3 Office Visit 12/31/2006 8:45a DO Not Use Maritza Varn, 97857 616.10 Restaurant Area Director-[facility] N.P. 626.0 401.1 Office Visit 06/26/2006 1:45p DO Not Use Ghada Cisse, 85334 244.9 Restaurant Area Director-Berhane M.DSoren Plan of Care Future Appointment(s):12/11/2017 11:30 am - Elizabeth Coffman M.D. at [facility].11/25/2017 - Elizabeth Coffman M.D.M17.11 Unilateral primary osteoarthritis, right kneeFollow up:Follow up: 7-10 days before jifrllkE19.561 Pain in right kneeM25.461 Effusion, right kneeZ96.652 Presence of left artificial knee joint
[2017-12-24] MEDS ORDERED: celeCOXIB CAP* 100 MG ONE (07:00)
[2017-12-24] MEDS ORDERED: ceFAZolin 2 GM PREMIX (*) 2 GM/50 ML BAG IVPB ONE (07:00)
[2017-12-24] MEDS ORDERED: Gabapentin CAP(*) 300 MG ONE (07:00)
[2017-12-24] MEDS ORDERED: Acetaminophen TAB* 325 MG ONE (07:00)
[2017-12-24] MEDS ORDERED: fentaNYL* 50 MCG/ML 2 ML VIAL (100 MCG VIAL) ONE (07:23)
[2017-12-24] MEDS ORDERED: Midazolam* 1 MG/ML 2 ML VIAL (2 MG) ONE ×2 (07:23→08:22)
[2017-12-24] MEDS ORDERED: Bupivacaine 0.5% PF 10 ML VIAL INJ ONE ×2 (07:47→08:31)
[2017-12-24] MEDS ORDERED: Morphine PF AMP (0.5MG/ML)* 5 MG/10 ML AMP ONE (08:11)
[2017-12-24] MEDS ORDERED: Tranexamic Acid 1,000 MG/10 ML SDV IV ONE (08:13)
[2017-12-24] MEDS ORDERED: Hetastarch 6% in NS* 500 ML IV ONE (08:19)
[2017-12-24] MEDS ORDERED: Lidocaine 2% PF * 5 ML VIAL ONE (08:31)
[2017-12-24] MEDS ORDERED: ROPIVACAINE 5 MG/ML 30 ML BTL (0.5%) ONE (08:31)
[2017-12-24] MEDS ORDERED: Propofol* 10 MG/ML 20 ML BTL IV PUSH ONE (08:31)
[2017-12-24] MEDS ORDERED: Famotidine IV* 10 MG/ML 2 ML (20 mg) ONE (08:31)
[2017-12-24] MEDS ORDERED: Dexamethasone IV* 4 MG/ML 1 ML (4 MG) ONE (08:31)
[2017-12-24] MEDS ORDERED: Bupivacaine-MPF SPINAL* 7.5 MG/ML - 2ML AMP ONE (08:31)
[2017-12-24] MEDS ORDERED: EPHEDrine (Pressors)* 50 MG/ML VIAL ONE (08:45)
[2017-12-24] MEDS ORDERED: diPHENhydraMINE IV* 50 MG/ML 1 ml VIAL (BENADRYL) ONE ×2 (09:02→12:14)
[2017-12-24] MEDS ORDERED: fentaNYL* 50 MCG/ML 2 ML VIAL (100 MCG VIAL) IV PRN (09:36)
[2017-12-24] MEDS ORDERED: Naloxone* 0.4 MG/ML 1 ML VIAL IV PRN ×2 (09:36→09:38)
[2017-12-24] MEDS ORDERED: HYDROcodone/ACETAMIN 5-325 MG* 1 TAB PO PRN ×2 (09:38)
[2017-12-24] MEDS ORDERED: diPHENhydraMINE IV* 50 MG/ML 1 ml VIAL (BENADRYL) IV PRN (09:38)
[2017-12-24] MEDS ORDERED: Nalbuphine* 10 MG/ML 1 ML VIAL IV PRN (09:38)
[2017-12-24] MEDS ORDERED: Scopolamine 1.5 mg* PATCH TRANSDERM PRN (09:38)
[2017-12-24] MEDS ORDERED: PROCHLORPERAZINE INJ 5 MG/ML 2 ML VIAL IV PRN (09:38)
[2017-12-24] MEDS ORDERED: Ondansetron INJ* 2 MG/ML VIAL IV PRN (09:38)
[2017-12-24] MEDS ORDERED: DiMENhydriNATE IV* 50 MG/ML VIAL IV PUSH PRN (09:38)
[2017-12-24] MEDS ORDERED: Cyclobenzaprine TAB* 10 MG PO PRN (10:49)
[2017-12-24] MEDS ORDERED: Bisacodyl SUPP* 10 MG SUPP PR PRN (10:49)
[2017-12-24] MEDS ORDERED: Polyethylene Glycol 3350* 17 GM PACKET PO PRN (10:49)
[2017-12-24] MEDS ORDERED: Magnesium Hydroxide LIQ* 30 ML UDC PO PRN (10:49)
[2017-12-24] MEDS ORDERED: oxyCODONE/Acetamin 5/325 MG* TAB PO PRN (10:49)
--- NOTE | 2017-12-24 11:33 | RAD ---
INDICATION: Status post total right knee replacement surgery. TECHNIQUE: 2 views of the right knee were obtained. FINDINGS: The patient is status post total right knee replacement surgery. The bones and prostheses are in normal alignment. There is a small amount of air within the soft tissues consistent with the patient's recent surgery. IMPRESSION: STATUS POST TOTAL RIGHT KNEE REPLACEMENT SURGERY.
[2017-12-24] MEDS: Acetaminophen TAB* 325 MG PO SCH ×3 (13:45→22:40)
[2017-12-24] MEDS: ceFAZolin 1 GM in Dextrose (*) 1 GM/50 ML BAG IVPB SCH (16:25)
[2017-12-24] MEDS ORDERED: Warfarin TAB(*) 6 MG PO ONE (17:00)
[2017-12-24] MEDS ORDERED: Ketorolac INJ* 30 MG/ML 1 ML VIAL IV PRN (20:00)
[2017-12-24] MEDS: Magnesium Hydroxide LIQ* 30 ML UDC PO SCH (20:37)
[2017-12-24] MEDS: Docusate CAP* 100 MG PO SCH (20:37)
[2017-12-24] MEDS: oxyCODONE/Acetamin 5/325 MG* TAB PO PRN (22:30)
[2017-12-25] MEDS: ceFAZolin 1 GM in Dextrose (*) 1 GM/50 ML BAG IVPB SCH ×2 (00:45→08:39)
[2017-12-25] MEDS ORDERED: Acetaminophen TAB* 325 MG PO PRN (01:30)
[2017-12-25] MEDS ORDERED: Ondansetron INJ* 2 MG/ML VIAL IV PRN (01:30)
[2017-12-25] MEDS ORDERED: Morphine VIAL* 4 MG/ML VIAL (1 ml vial) IV PRN (01:30)
[2017-12-25] MEDS ORDERED: Ondansetron TAB* 4 MG PO PRN (01:30)
[2017-12-25] MEDS: oxyCODONE/Acetamin 5/325 MG* TAB PO PRN ×5 (02:35→20:45)
[2017-12-25] MEDS: diPHENhydraMINE IV* 50 MG/ML 1 ml VIAL (BENADRYL) IV PRN ×2 (04:42→12:25)
[2017-12-25 05:51] LABS: Hematocrit 29 % (35-47); Hemoglobin 10.2 g/dl (12.0-16.0); Mean Platelet Volume 7.3 um3 (7.4-10.4); Platelet Count 227 10^3/ul (150-450)
[2017-12-25] MEDS: oxyCODONE TAB* 5 MG TAB PO PRN ×5 (05:58→23:10)
[2017-12-25] MEDS: Levothyroxine TAB* 137 MCG TAB PO SCH (05:58)
[2017-12-25 06:07] LABS: EGFR Non-African American 68.9 (>60)
[2017-12-25] MEDS: Magnesium Hydroxide LIQ* 30 ML UDC PO SCH ×2 (07:47→20:44)
[2017-12-25] MEDS: Docusate CAP* 100 MG PO SCH ×2 (07:48→20:44)
--- NOTE | 2017-12-25 09:02 | PN ---
Progress Note - Progress Note Date of Service: 12/25/17 SOAP: Subjective: Ms. Pop is a 57 yo female POD#1 s/p right TKA with Dr. Coffman. She is seen today with at side, resting comfortably in bed. Pain not well controlled after PT, using oxycodin and percocet, feels needs additional night in hospital for pain management. Did well with PT this morning. Used ASA after d /c for DVT prophylaxis for left knee and discussed with Dr. Coffman today. Denies CP, SOB, N/V, calf pain, dizziness/lightheadedness. Objective: Vital Signs Temp 99.2 F 12/25/17 07:07 Pulse 102 12/25/17 07:07 Resp 18 12/25/17 08:43 BP 98/66 12/25/17 07:07 Pulse Ox 90 12/25/17 07:07 Intake & Output 12/24/17 12/25/17 12/25/17 18:59 06:59 18:59 Intake Total 3180 1500 100 Output Total 625 875 Balance 2555 625 100 Weight 193 lb Intake: IV Fluids 2100 990 Hetastarch 500 LR 1600 990 IVPB 50 ABX - CEFAZOLIN 50 Oral 1080 460 100 Output: Zavala 625 875 Laboratory Results - last 24 hr 12/25/17 12/25/17 12/25/17 05:24 05:24 05:24 Hgb 10.2 L Hct 29 L Plt Count 227 MPV 7.3 L INR (Anticoag Therapy) 1.00 Sodium 136 Potassium 3.5 Chloride 105 Carbon Dioxide 26 Anion Gap 5 BUN 18 Creatinine 0.85 Est GFR ( Amer) 83.4 Est GFR (Non-Af Amer) 68.9 BUN/Creatinine Ratio 21.2 H Glucose 98 Calcium 8.2 L General: WN, WD, A&Ox3, NAD RLE: Dressing C/D/I with no erythema, warmth, ecchymosis proximal or distal to dressing. Thigh soft, some tenderness. Calf soft and non-tender. +DF/PF. 2+ DP pulse. SITLT. Assessment: Ms. Pop is a 57 yo female POD#1 s/p right TKA with Dr. Coffman. Plan: - Continue PT/OT - DVT Prophylaxis: Plan for ASA 325 mg BID on discharge. Continue Lovenox in house, d/c INR and coumadin. - Post-op antibiotics completed - Plan for d/c tomorrow if pain well controlled. Orders for outpatient PT submitted.
--- NOTE | 2017-12-25 11:51 | OP ---
OPERATIVE REPORT: DATE OF OPERATION: 12/24/17 DATE OF : 60 SURGEON: Elizabeth Coffman MD. ASSOCIATE PROFESSOR OF THEOLOGY: KRYSTLE Mosqueda. Mr. Erickson did help throughout the procedure with preparation of the leg, wound retraction, manipulat ion of the knee, and wound closure. ANESTHESIOLOGIST: Dr. Boles. ANESTHESIA: Spinal. PRE-OP DIAGNOSIS: Severe endstage degenerative osteoarthritis of the right knee joint. POST-OP DIAGNOSIS: Severe endstage degenerative osteoarthritis of the right knee joint. OPERATIVE PROCEDURE: Right total knee arthroplasty. TOURNIQUET TIME: 54 minutes. COMPLICATIONS: None. ESTIMATED BLOOD LOSS: 200 cc. SPECIMENS: Bone and cartilage from the right knee joint sent to Pathology. HARDWARE USED: This is cemented [employer] total knee arthroplasty hardware. Two packages of S implex bone cement. For the femur, a Legion size 4 right Oxinium femoral component, posterior stabil ized. For the tibia, a size 3 right tibial base plate Ashlyn II. For the insert, a 9 mm posterior stabilized articular insert size 3/4. For the patella, a 26 mm 3 peg all poly patella with 7.5 thick ness. BRIEF HISTORY/INDICATIONS: Ms. Pop is a 57-year-old female with years of increasingly severe right knee pain. Radiographs showed endstage [id number] arthritis. She failed conservative treatment w ith anti-inflammatories, pain medications, intraarticular injections, and physical therapy. Due to c ontinued pain and decreased quality of life, she elected to undergo right total knee arthroplasty. I nformed consent was obtained from the patient. She understood the risk of surgery included, but were not limited to bleeding, infection, damage to nearby structures, continued pain, need for further arreola rgery, intraoperative fracture, nerve palsy, hardware failure or loosening, knee stiffness, loss of m otion, stroke, heart attack, blood clot, and . She wished to proceed. INTRAOPERATIVE FINDINGS: Intraoperatively, the patient was noted to have severe endstage arthritis o f both the medial and patellofemoral compartments. There was full thickness loss of cartilage. In t he tibia, she did have some subchondral bone cysts noted. The patella had extreme wear of the medial patellar facet with actual bony deformity. DESCRIPTION OF PROCEDURE: Ms. Pop was identified in the preanesthesia unit. Her right lower extre mity was marked as the correct operative side. Informed consent was signed and placed in the chart. The patient was taken to the operating room and placed under spinal anesthesia. A Zavala catheter wa s placed. Tourniquet was placed on the right thigh. The right lower extremity was prepped and drape d in the usual sterile fashion. Preop time-out was made to correctly identify the patient, side and site. Appropriate perioperative antibiotics were given within 1 hour of incision. A 12-cm midline incision was made with a 10 blade and carried down to the extensor mechanism. A new 10 blade was used to make a standard medial parapatellar arthrotomy. The patella was subluxed latera lly. Electrocautery was used to subperiosteally elevate the soft tissue off the superomedial tibia t o the mid sagittal plane. The knee was flexed up. The meniscus and ACL were sharply released. A dr ill was used to enter the distal femur. Intramedullary distal femoral cutting guide was pinned on th e distal femur. Oscillating saw was used to make the distal femoral cut. Next, the external rotatio n guide was pinned on the distal femur. The distal femur was sized to a size 4. A size 4 multi cutt ing jig was pinned on the distal femur. Oscillating saw was used to make the appropriate chamfer cut s. The PCL was completely released. The tibia was subluxed anteriorly. Extramedullary tibial cutti ng guide was pinned on the proximal tibia. Oscillating saw was used to make the proximal tibial cut perpendicular to the mechanical axis of the tibia. The bone was carefully removed. The knee was brou ght out into full extension. The spacer block had excellent fit with the knee in extension. Medial and lateral ligaments were well balanced. Flexion and extension gaps were well balanced. The knee was flexed up. A lamina diaper folder was placed both medially and laterally. Any remaining meni scus was removed using electrocautery. Curved osteotome was used to remove any posterior osteophytes . A size 4 right femoral trial was impacted on to the distal femur. The box for the posterior stabi lized implant was prepared using a reamer and box cut osteotome. Size 3 tibial tray trial with a 9 m m insert trial was placed and the knee was taken through a range of motion. There was full extension to 130 degrees of flexion. There was satisfactory patellofemoral tracking. The patella was everted . The medial patellar facet had extreme deformation and wear. There was 6 mm of bone here. This ar ea could not be reliably used for placement of the patellar implant. 7 mm of patellar bone and carti keren was carefully removed from the lateral patellar facet and mid portion of the patella. A 26 herndon llar trial did have a satisfactory fit. Three peg holes were drilled through the size 26 guide. Tri al 26 patella was placed and the knee was taken through a range of motion. There was satisfactory pa tellofemoral tracking. All trials were removed. The tibia was subluxed anteriorly and sized to a size 3. Proximal tibia was prepared using a size 3 keel punch. All bony cut surfaces were copiously irrigated with sterile valeria ine. Final implants were cemented into place, starting with the tibia followed by the femur and last the patella. A 9-mm insert trial was placed and the knee was brought out to full extension. Tourni quet was turned down at 54 minutes. The knee was copiously irrigated with sterile saline. Electrocau serina was used to obtain meticulous hemostasis. Once the cement had fully cured, the insert trial was removed. Any excess cement was removed from around the capsule and hardware. Final insert chosen w as a 9 mm posterior stabilized articular insert size 3/4. This was locked into position on the tibia l tray. Stability of the insert was checked and rechecked and noted to be stable. The knee was once again copiously irrigated with sterile saline. The extensor mechanism was closed u sing interrupted #1 Vicryls. The rest of the incision was closed in a layered fashion using 0 and 2- 0 Vicryls. Skin was closed using running 3-0 nylon suture. The incision was covered sterile Xerofor m, 4x4s, and Webril. Bret wrap and cold packs were placed over this. The patient's anesthesia was rev ersed without difficulty. She was taken to the PACU in stable condition. Intended weightbearing will be weightbearing as tolerated. Intended DVT prophylaxis will be Lovenox and home on aspirin due to the patient's preference. [id number]/[facility] #: [id number]
[2017-12-25] MEDS: Enoxaparin(*) 30 MG/0.3 ML SYR SUBCUT SCH (12:19)
[2017-12-25] MEDS ORDERED: diPHENhydraMINE PO* 25 MG PO PRN (12:34)
[2017-12-26] MEDS: oxyCODONE TAB* 5 MG TAB PO PRN ×2 (03:47→09:07)
[2017-12-26] MEDS: Levothyroxine TAB* 137 MCG TAB PO SCH (05:48)
[2017-12-26 06:18] LABS: Hematocrit 31 % (35-47); Hemoglobin 10.6 g/dl (12.0-16.0); Mean Platelet Volume 7.4 um3 (7.4-10.4); Platelet Count 266 10^3/ul (150-450)
[2017-12-26] MEDS: Magnesium Hydroxide LIQ* 30 ML UDC PO SCH (09:07)
[2017-12-26] MEDS: Docusate CAP* 100 MG PO SCH (09:07)
[2017-12-26 11:33] VITALS: BP 148/84
[2017-12-26] MEDS: Enoxaparin(*) 30 MG/0.3 ML SYR SUBCUT SCH (12:06)
[2017-12-26] MEDS: oxyCODONE/Acetamin 5/325 MG* TAB PO PRN (12:07)
--- NOTE | 2017-12-26 12:09 | PN ---
Progress Note - Progress Note Date of Service: 12/26/17 SOAP: Subjective: Pt is doing well. Pain controlled. Progressing well with PT. Pain controlled with oral percocet. Denies Cp/SOB or F/C Objective: PE- 57 y/o WDWN F NAD, A&O x3 RLE- dressing changed, inc c/d/i with no signs of infection, calf soft NT, +DF/ PF ankle, +2 DP pulse, SILT Vital Signs Temp Pulse Resp BP Pulse Ox 99.0 F 90 18 148/84 95 12/26/17 11:13 12/26/17 11:13 12/26/17 12:07 12/26/17 11:13 12/26/17 11:13 Laboratory Results - last 24 hr 12/26/17 05:54 Hgb 10.6 L Hct 31 L Plt Count 266 MPV 7.4 Assessment: 57 yo female POD#2 s/p right TKA with Dr. Coffman. Plan: - Continue PT/OT - DVT Prophylaxis: Plan for ASA 325 mg BID on discharge. Lovenox before DC -percocet for pain and colace for constipation - Discharge today to home with outpt PT. -F/U Dr. Coffman 10-14 days post op
--- NOTE | 2017-12-26 17:41 | DS ---
DISCHARGE SUMMARY: DATE OF ADMISSION/SURGERY: 12/24/17 DATE OF DISCHARGE: 12/26/17 PROVIDER: Dr. Elizabeth Coffman.* (DICTATED BY KRYSTLE DENNISON) ADMITTING DIAGNOSIS: Right knee osteoarthritis. SECONDARY DIAGNOSES: 1. Hypothyroidism. 2. Sleep apnea. CONSULTATIONS: PT, OT. HISTORY OF PRESENT ILLNESS: Ms. Pop is a 57-year-old female, who presented to the clinic with right knee pain due to end-stage osteoarthritis. She has failed conservative measures and therefore agreed to undergo a right total knee arthroplasty with Dr. Coffman on 12/24/17. HOSPITAL COURSE: The patient was admitted to [facility] [place]. She underwent a right total knee arthroplasty. She recovered on short-stay surgical unit. Postop day 1, the Zav[place] was removed. She was able to urinate on her own. She advanced to a regular diet without difficulty and her pain was controlled with oral Percocet. She was restarted on home medications. Labs and vitals remained stable. She was able to weight bear as tolerated on the right lower extremity. She advanced appropriately with PT and OT. DVT prophylaxis was managed with Lovenox inpatient and aspirin outpatient. By postop day 2, she was orthopedically and medically stable to discharge to home with outpatient physical therapy. DISCHARGE CONDITION: Stable. DISCHARGE MEDICATIONS: Home medications continued on discharge to include: 1. Multivitamin 1 by mouth in the evening. 2. Vitamin B12 one by mouth in the morning. 3. Vitamin D3 2000 units 1 by mouth daily. 4. Excedrin Extra Strength 1 tab by mouth 2 times a day as needed. 5. Synthroid 137 mcg by mouth daily. 6. Auvi-Q 0.3 mg-0.3 mL auto-inject injection once as needed. 7. Clobetasol propionate 15 g cream 0.05% topically twice a day as needed. 8. Glucosamine/chondroitin 1 tab daily. 9. Ibuprofen 200 mg, 600 mg by mouth as needed. 10. Estrace vaginal cream as directed as needed. 11. Vitamin B12 one tab by mouth daily. New medications on discharge to include: 1. Aspirin 325 one tab twice a day x30 days for DVT prophylaxis. 2. Colace 100 mg 1 by mouth 3 times a day as needed for constipation. 3. Percocet 5/325 one to two every 4 to 6 hours, MDD of 10, for postop pain. DISCHARGE INSTRUCTIONS: She is weightbearing as tolerated on her right lower extremity. She may shower postop day 3. Do not submerge the wound, redress with gauze and Bret. Call with increased drainage, redness, increased pain or fever greater than 101.5. She should go the ER with chest pain or shortness of breath. Regular diet with increased fluids and fiber to prevent constipation. She should use stool softeners and call the office with no bowel movement within 48 hours. She should continue PT and OT exercises as shown. She will do outpatient PT. She should take aspirin 5/325 twice a day for 30 days for DVT prophylaxis. She should avoid taking ibuprofen, Excedrin, and naproxen while on aspirin. Pain control with Percocet 5/325, MDD of 10, do not exceed 4000 mg of Tylenol a day. She should take Colace 3 times a day as needed for constipation. She will require antibiotics prior to any dental work and follow up with Dr. Coffman 10 to 14 days postop. KRYSTLE DENNISON [id number]/[facility] #: [id number] [facility] CENTERThais
[2017-12-27] MEDS ORDERED: Scopolamine PATCH Remove* 1 NOTE MISC PATCH OFF PRN (09:40)
== END 2017-12-26 14:00 | disposition home or self-care (01) | DRG 302 ==
LOC: AA 06:44 → SSU 12:04
PROVIDERS: ADMIT Orthopaedic Surgery Adult Reconstructive Orthopaedic Surgery; ATTEND Orthopaedic Surgery Adult Reconstructive Orthopaedic Surgery
PROC: 0SRC069 Replacement of Right Knee Joint with Oxidized Zirconium on Polyethylene Synthetic Substitute, Cemented, Open Approach (ICD-10-PCS; principal; 2017-12-24 08:00)
DX: M17.11 Unilateral primary osteoarthritis, right knee (principal); E03.9 Hypothyroidism, unspecified; Z96.652 Presence of left artificial knee joint; M19.022 Primary osteoarthritis, left elbow; M19.021 Primary osteoarthritis, right elbow; G43.909 Migraine, unspecified, not intractable, without status migrainosus; I05.9 Rheumatic mitral valve disease, unspecified; E66.3 Overweight; K90.0 Celiac disease; M85.661 Other cyst of bone, right lower leg; G47.33 Obstructive sleep apnea (adult) (pediatric); M25.761 Osteophyte, right knee; Z88.2 Allergy status to sulfonamides; Z82.49 Family history of ischemic heart disease and other diseases of the circulatory system; Z83.3 Family history of diabetes mellitus; Z72.89 Other problems related to lifestyle; Z91.030 Bee allergy status; Z87.01 Personal history of pneumonia (recurrent); Z82.61 Family history of arthritis; Z83.49 Family history of other endocrine, nutritional and metabolic diseases; Z82.62 Family history of osteoporosis; Z68.31 Body mass index [BMI] 31.0-31.9, adult
CPT/HCPCS: 36415; 80048; 85014; 85018; 85049; 85610; 88305; 88311; A9270-GY; C1776; G8987-GO-CJ; G8988-GO-CJ; G8989-GO-CJ; J0690; J1100; J1200; J1650; J1885; J2250; J2704; J2795; J3010